=== PATIENT | male | born 1975 | race Caucasian/White ===

== ENCOUNTER → 2021-09-07 13:43 | Outpatient (BNVA) | payer MEDICARE, MEDICAID, BC, SELFPAY | PROVIDERS: PCP Internal Medicine; Visit Provider Nurse Practitioner Family | DX: G40.909 Epilepsy, unspecified, not intractable, without status epilepticus (principal); Q85.1 Tuberous sclerosis | CPT/HCPCS: 99212 ==

== ENCOUNTER → 2022-04-21 11:21 | Outpatient (BNVA) | payer MEDICARE, BC, MEDICAID, SELFPAY | PROVIDERS: PCP Family Medicine; Visit Provider Nurse Practitioner Family | DX: G40.909 Epilepsy, unspecified, not intractable, without status epilepticus (principal); Q85.1 Tuberous sclerosis | CPT/HCPCS: 99212 ==

== ENCOUNTER 2023-04-25 13:11 | Outpatient (AMB) | payer MEDICARE, MEDICAID, BC, SELFPAY ==
--- NOTE | 2023-04-25 13:16 | MHC.OFFVIS ---
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 Pt reports he has outgrown his lesions . Artist Suspect Required: No Allergies cephalexin [From Keflex] Allergy (Intermediate, Verified 04/25/23 13:17) Unknown Penicillins Allergy (Intermediate, Verified 04/25/23 13:17) Unknown Medication List - Last Reconciled 04/25/23 by MARISABEL Garg carbamazepine ER 800 mg (2 x 400 mg) PO BID 90 days fluticasone propionate 50 mcg/actuation 2 sprays intranasal DAILY losartan 25 mg PO DAILY phenytoin sodium extended 200 mg (2 x 100 mg) PO BID 90 days sertraline 100 mg PO DAILY HPI HPI Comments History of Present Illness Details 47-yr-old male presents for f/u visit, accompanied by his father Pt denies any significant interval medical changes. However, he did have a recent fall walking down some stairs while carrying something. He did hit his head, required occipital region stables, which have been removed. Denies nay new headaches, dizziness. 03/24/23: Head, Neck, Thoracic CT w/o: IMPRESSION: No acute abnormality of the head or cervical spine. Pt is wondering what would happen if he stopped his AEDs. Patient denies any interval seizure activities. He is compliant w/ Tegretol and Phenytoin. Patient states his kidney status is stable. Patient reports his mood has been down d/t some stress, but is seeing a therapist at home which he feels is helpful- usually once a week but she has been sick. States he is eating well, taking enough fluids, sleeping well. He is supposed to return to [facility] - not sure what they are waiting for specifically. In the meantime, pt has been home doing day to day activities. 01/18/23 14:20 11/27/22 13:04 WBC 6.4 9.1 RBC 5.41 5.43 Hgb 15.5 15.8 Hct 48.8 47.5 MCV 90.2 87.5 MCH 28.7 29.1 MCHC ?31.8 33.3 Platelet Count 341 360 RDW-SD ?48.5 46.3 MPV ?9.3 01/18/23 14:20 11/27/22 13:04 Sodium 139 140 Potassium 5.0 4.1 Chloride 103 105 Bicarbonate Level 26 ?20 Anion Gap 10 15 Glucose Level ?100 ?101 BUN ?21 16 Creatinine-Blood ?1.3 ?1.3 Estimated GFR Crea tinine *67 *68 Calcium 9.1 9.0 Protein, Total 6.7 -- Albumin 4.5 -- AG Ratio 2.0 -- Alkaline Phosphata se ?157 H -- AST (SGOT) 17 -- ALT (SGPT) 27 -- Bilirubin, Total 0.2 -- Ethanol, Serum or Plasma *NONE DETECTED -- Dilantin Level 4.7 L -- Cocaine Metabolite Screen, Urine *NONE DETECTED -- Opiate Screen, Uri ne *NONE DETECTED -- Carbamazepine Leve l ?*12.0 H ?*10.8 PFSH Medical History HTN (hypertension) Mood disorder Social History Alcohol intake: never Patient Tobacco Use Status: Never used Tobacco Review of Systems Const All systems reviewed & are unremarkable except as noted in HPI and below Physical Exam Vital Signs: Last Vital Signs Pulse 71 04/25/23 13:18 Resp 17 04/25/23 13:18 BP 126/78 04/25/23 13:18 Pulse Ox 94 04/25/23 13:18 Oxygen Delivery Method Room Air 04/25/23 13:18 Const General: cooperative and no acute distress Orientation/consciousness: patient oriented x3 HEENT Head: Yes normocephalic Resp Effort & Inspection: normal respiratory effort and able to speak in complete sentences Neuro General: patient oriented x3, gait normal and CN's II-XI intact bilaterally Cognition (Neuro): normal cognition Motor exam (neuro): 5/5 motor strength present throughout Psych Appearance: grossly normal Mental Status: mental status grossly normal Speech and movement: Normal speech and movement present Affect: normal affect Attitude: cooperative Thought process: Normal thought process present Thought content: Normal thought content present Insight: Good insight present (Psych) Judgement: Good judgement present (Psych) Assessment & Plan Assessment & Plan (1) Epilepsy: Code(s): G40.909 - Epilepsy, unspecified, not intractable, without status epilepticus (2) Tuberous sclerosis: Comment: MR Brain w and w/o: 09/28/16 Impression: Scattered areas of subcortial signal abnormality, most conspicuous on FLAIR sequences, without enhancement, mass effect or restricted diffusion, in keeping with clinical diagnosis of tuberous sclerosis. No subependymal giant cell astrocytoma revealed. No abnormal enhancement, hemorrhage or restricted diffusion. Code(s): Q85.1 - Tuberous sclerosis (3) Elevated alkaline phosphatase level: Code(s): R74.8 - Abnormal levels of other serum enzymes (4) Risk for falls: Code(s): Z91.81 - History of falling (5) Phenytoin level low: Code(s): R78.89 - Finding of other specified substances, not normally found in blood Plan Discussed that pt would likely have breakthrough seizure if he stopped his AED tx. Reviewed labs- Notable for elevated Alk, Phos, low phenttoin level, elevated tegretol level. Will recheck CBC, CMP, tegretol and dilantin levels. Also check serum vit D, phosphorus levels. Order baseline Dexa bone density scan as pt has risk factors for osteoporosis d/t chronic phenytoin use. For now: Continue Phenytoin 100 mg- 2 caps bid. Continue Tegretol XR 400 mg- 2 tabs bid. ? f/u in 12 months or sooner prn. Orders: Orders Carbamazepine Tegretol Today G40.909 - Epilepsy, unspecified, not intractable, without status epilepticus, Q85.1 - Tuberous sclerosis Phenytoin Dilantin Today G40.909 - Epilepsy, unspecified, not intractable, without status epilepticus, Q85.1 - Tuberous sclerosis Phenytoin, Free/Unbound Today G40.909 - Epilepsy, unspecified, not intractable, without status epilepticus, Q85.1 - Tuberous sclerosis Vitamin D 25-OH (D2 and D3) Today R74.8 - Abnormal levels of other serum enzymes, T42.0X5A - Adverse effect of hydantoin derivatives, initial encounter Phosphorus Today R74.8 - Abnormal levels of other serum enzymes, T42.0X5A - Adverse effect of hydantoin derivatives, initial encounter Complete Blood Count Auto Diff Today G40.909 - Epilepsy, unspecified, not intractable, without status epilepticus, Q85.1 - Tuberous sclerosis Comprehensive Met. Panel Today G40.909 - Epilepsy, unspecified, not intractable, without status epilepticus, Q85.1 - Tuberous sclerosis XR DEXA axial skeleton Today G40.909 - Epilepsy, unspecified, not intractable, without status epilepticus, Q85.1 - Tuberous sclerosis, R74.8 - Abnormal levels of other serum enzymes, R78.89 - Finding of other specified substances, not normally found in blood, Z91.81 - History of falling Coding Level of Care Code Est Pt Level 4 (26179) Diagnoses Epilepsy G40.909 Tuberous sclerosis Q85.1 Elevated alkaline phosphatase level R74.8 Risk for falls Z91.81 Phenytoin level low R78.89
[2023-04-25 13:18] VITALS: BP 126/78; PULSE 71; RESP 17; O2SAT 94
== END 2023-04-25 13:58 | disposition home or self-care (01) ==
PROVIDERS: PCP Family Medicine; Visit Provider Nurse Practitioner Family
DX: G40.909 Epilepsy, unspecified, not intractable, without status epilepticus (principal); Q85.1 Tuberous sclerosis; R74.8 Abnormal levels of other serum enzymes; Z91.81 History of falling; R78.89 Finding of other specified substances, not normally found in blood
CPT/HCPCS: 99214

== ENCOUNTER → 2023-04-25 13:11 | Outpatient (BNVA) | payer MEDICARE, MEDICAID, BC, SELFPAY | PROVIDERS: PCP Family Medicine; Visit Provider Nurse Practitioner Family | DX: G40.909 Epilepsy, unspecified, not intractable, without status epilepticus (principal); Q85.1 Tuberous sclerosis; R74.8 Abnormal levels of other serum enzymes; R78.89 Finding of other specified substances, not normally found in blood; Z91.81 History of falling | CPT/HCPCS: 99212 ==

== ENCOUNTER 2023-05-24 13:52 | Outpatient (REF) | payer MEDICARE, BC, MEDICAID, SELFPAY ==
--- NOTE | ~2023-05-24 | MM_ITS ---
EXAMINATION: BONE DENSITOMETRY CLINICAL INDICATION: Epilepsy, unspecified, not intractable, without status epilepticus. COMPARISON: This is the patient's baseline examination. TECHNIQUE: Using a [employer] DXA System (software version: 13.1) manufactured by [employer], dual-energy x-ray absorptiometry was performed of the lumbar spine and left hip. The images are of good technical quality. Based on ISCD (International Society for Clinical Densitometry) standards of reporting, Z-scores instead of T-scores are reported in this male patient younger than age 50. Summary results are attached. FINDINGS: AP SPINE L1-L4: BMD 1.339 g/cm2, T-score 1.0, Z-score 0.4, Z-score within expected range for age. LEFT FEMUR, NECK: BMD 0.786 g/cm2, T-score -2.2, Z-score -2.1, Z-score below expected range for age. LEFT FEMUR, TOTAL: BMD 0.903 g/cm2, T-score -1.4, Z-score -1.5, Z-score within expected range for age. IDENTIFIED RISK FACTORS: None listed. HISTORY OF FRACTURE: None listed. MEDICATIONS: Vitamin D. MM/XR DEXA axial skeleton IMPRESSION: 1. DIAGNOSIS: Based on the lowest Z-score value of -2.1 in the femoral neck, the patient's bone density is below the expected range for age. 2. 10-YEAR FRACTURE RISK PREDICTION, FRAX: Not performed in this patient outside the age range of 50-90 years. 3. Treatment Recommendations: NOF guidelines recommend consideration for treatment in postmenopausal women and men age 50 and older presenting with the following: -A hip or vertebral (clinical or morphometric) fracture. -T-score less than or equal to -2.5 at the femoral neck or spine after appropriate evaluation to exclude secondary causes. -Low bone mass at the hip or spine and a 10-year fracture probability by FRAX of greater than or equal to 3% for hip fracture or greater than or equal to 20% for major osteoporotic fracture based on the [place] adapted WHO algorithm. 4. Other Recommendations: All treatment decisions require clinical judgment and consideration of individual patient factors, including patient preferences, comorbidities, previous drug use, risk factors not captured in the FRAX model (e.g. frailty, falls, vitamin D deficiency, increased bone turnover, interval significant decline in bone density) and possible under or overestimation of fracture risk by FRAX. Additional medical evaluation for secondary cause of low bone mineral density may be appropriate. FUTURE SCAN RECOMMENDATION: People with diagnosed cases of osteoporosis or at high risk for fracture should have regular bone mineral density tests. For patients eligible for Medicare, routine testing is allowed once every 2 years. The testing frequency can be increased to one year for patients who have rapidly progressing disease, those who are receiving or discontinuing medical therapy to restore bone mass, or have additional risk factors.
== END 2023-05-24 13:53 | disposition home or self-care (01) ==
LOC: HO.MAMMO 13:52
PROVIDERS: PCP Family Medicine; Visit Provider Nurse Practitioner Family
DX: Z13.820 Encounter for screening for osteoporosis (principal); M85.852 Other specified disorders of bone density and structure, left thigh; M50.30 Other cervical disc degeneration, unspecified cervical region; M51.34 Other intervertebral disc degeneration, thoracic region
CPT/HCPCS: 77080

== ENCOUNTER 2024-10-17 10:23 | Outpatient (AMB) | payer MEDICARE, BC, MEDICAID, SELFPAY ==
--- NOTE | 2024-10-17 11:08 | A.OFFVIS_ITS ---
Vital Signs 10/17/24 11:12 BP 100/62 Blood Pressure Location Rt brachial Position Sitting Pulse 55 Pulse Source Pulse Oximeter Pulse Oximetry (%) 98 Oxygen Delivery Method Room Air Intake Visit Reasons: Follow up Allergies cephalexin (From Keflex) Allergy (Intermediate, Verified 04/25/23 13:17) Unknown Penicillins Allergy (Intermediate, Verified 04/25/23 13:17) Unknown HPI Comments Details: 48-yr-old male presents for f/u visit for seizure and tuberous sclerosis, accompanied by his father. Patient was last seen by myself in April of 2023. Since last visit, patient had inpatient psychiatric hospital stay. Where his medications were adjusted, including his seizure medication. He has since returned home, living with his parents. He is followed closely by Psychiatry in [place]. He continues to attend [facility]. Patient and his father state that his mood is much improved, since starting Invega injections. Patient denies any interval seizure activity. Denies any abdominal symptoms suggestive of seizure aura. Patient believes he has outgrown his seizures and tuberous sclerosis. Patient never had brain MRI following lab visit to assess status of tuberous sclerosis. [facility] Medical History HTN (hypertension) Mood disorder Social History (Reviewed 04/25/23 @ 13:18 by Sarika Bain [facility]) Alcohol intake: never Patient Tobacco Use Status: Never used Tobacco Physical Exam Vital Signs: Last Vital Signs Pulse 55 10/17/24 11:12 BP 100/62 10/17/24 11:12 Pulse Ox 98 10/17/24 11:12 Oxygen Delivery Method Room Air 10/17/24 11:12 Const General: cooperative and no acute distress Orientation/consciousness: patient oriented x3 HEENT Head: Yes normocephalic Resp Effort & Inspection: normal respiratory effort and able to speak in complete sentences Neuro General: patient oriented x3, gait normal and CN's II-XI intact bilaterally Cognition (Neuro): normal cognition Psych Appearance: grossly normal Speech and movement: Normal speech and movement present Affect: normal affect Assessment & Plan Assessment & Plan (1) Epilepsy: Code(s): G40.909 - Epilepsy, unspecified, not intractable, without status epilepticus Category: Medical (2) Tuberous sclerosis: Comment: MR Brain w and w/o: 09/28/16 Impression: Scattered areas of subcortial signal abnormality, most conspicuous on FLAIR sequences, without enhancement, mass effect or restricted diffusion, in keeping with clinical diagnosis of tuberous sclerosis. No subependymal giant cell astrocytoma revealed. No abnormal enhancement, hemorrhage or restricted diffusion. Code(s): Q85.1 - Tuberous sclerosis Category: Medical Plan Check CBC, CMP, tegretol and dilantin levels. Brain MRI with and without contrast to assess status of tuberous sclerosis- patient requests open MRI at [facility]. Continue Phenytoin 200 mg twice a day Continue new Tegretol regimen- Tegretol XR 200 mg tab, 1 tab t.i.d. and 2 tabs q.h.s. ? f/u in 12 months or sooner prn. Orders: Orders MR head/brain wo/w con Today G40.909 - Epilepsy, unspecified, not intractable, without status epilepticus, Q85.1 - Tuberous sclerosis, R46.89 - Other symptoms and signs involving appearance and behavior Comprehensive Met. Panel Today G40.909 - Epilepsy, unspecified, not intractable, without status epilepticus, Q85.1 - Tuberous sclerosis Phenytoin Dilantin Today G40.909 - Epilepsy, unspecified, not intractable, without status epilepticus, Q85.1 - Tuberous sclerosis Complete Blood Count Auto Diff Today G40.909 - Epilepsy, unspecified, not intractable, without status epilepticus, Q85.1 - Tuberous sclerosis Carbamazepine Tegretol Today G40.909 - Epilepsy, unspecified, not intractable, without status epilepticus, Q85.1 - Tuberous sclerosis Phenytoin, Free/Unbound Today G40.909 - Epilepsy, unspecified, not intractable, without status epilepticus, Q85.1 - Tuberous sclerosis Medications: New phenytoin sodium extended 200 mg PO BID 60 caps 6RF 30 days Refilled carbamazepine 1 tab tid and 2 tabs qhs orally 2 times a day; 150 tabs 6RF 30 days Discontinued phenytoin sodium extended Discontinued Reason: Ancillary Entered New Order 200 mg (2 x 100 mg) PO BID 90 days 360 caps 1RF Coding Level of Care Code Est Pt Level 4 (05350) Diagnoses Epilepsy G40.909 Tuberous sclerosis Q85.1
--- OUTSIDE RECORDS SUMMARY | 2024-10-17 11:10 | XMS_ITS ---
Author Organization [address] Address [address] [place] [address] Phone Care Team Providers Care Pit Worker Power Shovel Name Role Phone Mary Alarcon DO Primary Care Provider [phone] Community Health Worker Program Status:Identified (Enrolling) Start date:10/10/2024 Enrollment reason:Referred from clinic Current support & services provided:Adult Overview Community Health Worker Program Case Team Name Relationship Phone Morteza Mcdermott Community Health Worker(Responsi ble Staff) Continued Care and Services Coordination
[2024-10-17 11:12] VITALS: BP 100/62; PULSE 55; O2SAT 98
== END 2024-10-17 11:39 | disposition home or self-care (01) ==
LOC: HO.HSMS 10:24
PROVIDERS: PCP Family Medicine; Visit Provider Nurse Practitioner Family
DX: G40.909 Epilepsy, unspecified, not intractable, without status epilepticus (principal); Q85.1 Tuberous sclerosis
CPT/HCPCS: 99214

== ENCOUNTER → 2024-10-17 10:23 | Outpatient (BNVA) | payer MEDICARE, BC, SELFPAY | PROVIDERS: PCP Family Medicine; Visit Provider Nurse Practitioner Family | DX: Q85.1 Tuberous sclerosis (principal); G40.909 Epilepsy, unspecified, not intractable, without status epilepticus | CPT/HCPCS: 99212 ==

== ENCOUNTER 2025-03-17 08:44 | Outpatient (REF) | payer BC, MEDICARE, MEDICAID, SELFPAY ==
--- OUTSIDE RECORDS SUMMARY | 2016-12-12 23:00 | XMS_ITS | Encounter Summary ---
Author Organization [facility] Address [address] [facility] [address] [place] [phone] Phone Care Team Providers Care Supervisor Sunglasses Name Role Phone Unavailable Primary Care Provider Unavailabl e Reason for Visit * MRI/CAT Scan - Closed Specialty Diagnoses / Procedures Referred By Leanna rodriguez Referred To Contact Procedures MRI Abdomen Outside (No Interpretation) Maximo Rivas MD [address] [place] [phone] Phone: tel: fax: mailto:[email or web address] Referral ID Status Reason Start Date Expiration Date Visits Re quested Visits Authorized [id number] Closed 09/18/2017 09/18/2018 1 1 Encounter Details Date Type Department Care Team (Late st Contact Info) Description 12/13/2016 Hospital Encounter [facility] General Imaging [address] [place] [phone] Maximo Rivas MD [address] [place] [phone] [email or web address] Social History Tobacco Use Types Packs/Day Years [...] (No Interpretation) (12/13/2016 12:00 AM EDT) Narrative [facility] - 09/18/2017 1:25 PM EDT This study is for PACS storage only and not for interpretation. us Maximo Rivas MD IMG OUTSIDE IMAGING W/OUT INTE RPRETATION Final Result [facility] documented in this encounter Visit Diagnoses Not on filedocumented in this encounter Additional Source Comments The information contained in this document represents components of the legal health record. It is not the complete legal health record.[facility]
--- OUTSIDE RECORDS SUMMARY | 2017-07-12 23:00 | XMS_ITS | Encounter Summary ---
Author Organization [facility] Address [address] [facility] [address] [place] [address] Phone Care Team Providers Care Nfl Player Name Role Phone Unavailable Primary Care Provider Unavailabl e Reason for Visit * MRI/CAT Scan - Closed Specialty Diagnoses / Procedures Referred By Leanna t Referred To Contact Procedures CT Abdomen Outside (No Interpretation) Maximo Rivas MD [address] [place] [phone] Phone: tel: fax: mailto:[email or web address] Referral ID Status Reason Start Date Expiration Date Visits Re quested Visits Authorized [id number] Closed 09/18/2017 09/18/2018 1 1 Encounter Details Date Type Department Care Team (Late st Contact Info) Description 07/13/2017 Hospital Encounter [facility] General Imaging [address] [place] [phone] Maximo Rivas MD [address] [place] [phone] [email or web address] Social [...] (No Interpretation) (07/13/2017 12:00 AM EDT) Narrative [facility] [place] - 09/18/2017 1:21 PM EDT This study is for PACS storage only and not for interpretation. us Maximo Rivas MD IMG OUTSIDE IMAGING W/OUT INTE RPRETATION Final Result [facility] documented in this encounter Visit Diagnoses Not on filedocumented in this encounter Additional Source Comments The information contained in this document represents components of the legal health record. It is not the complete legal health record.[facility]
--- OUTSIDE RECORDS SUMMARY | 2025-03-12 17:29 | XMS_ITS | Continuity of Care Document ---
Author Organization [facility] al Address [address] [place] [address]- Care Team Providers Care Dynamics Ax Technical Architect Name Role Phone Brandin Sheth Primary Care Physician Encounter [facility] Date(s): 03/12/25 - 03/12/[address] [address]- Discharge Disposition: A-D/C Home Attending Physician: Edy Acharya MD Admitting Physician: Edy Acharya MD Referring Physician: Not on Staff, Referring MD Encounter Type: Disch ES Allergies, Adverse Reactions, Alerts Substance Criticality Severity Reaction Reaction Severity Status morphine halucination,AMS Act denny penicillins Active Keflex Active Functional Status Functional Status Assessment Assessment Assessment Component Result Effecti ve Date Total Falls Risk Score 5 03/12 Immunizations Given and Recorded Vaccine Date Status Refusal Reason tetanus/diphtheria/pertussis, acel(Tdap) 03/24/23 Given influenza virus vaccine, inactivated 01/27/16 Dimas rded Medications Clonidine = 0.1 mg, By Mouth, 3 times a day, 0 Refills, Maintenance, 01/22/24 11:34:00 AM EDT, Partial fill upon patient request if the prescription is for a schedule II opioid drug. Start Date: 01/22/24 Status: Ordered Medication Dispense Status: Completed Total Allowed Fills: 1 Fills Dispensed: 0 losartan 25 mg oral tablet 25 mg, 1, tablet, By Mouth, Daily, # 30 tablet, Refills 11, Tot. Refills 11, Maintenance, 10/28/15 8:59:00 AM EDT, Route to Pharmacy Electronically, [address] Start Date: 10/28/15 Status: Ordered Medication Dispense Status: Completed Quantity: 30.0 Unit: tablet Total Allowed Fills: 12 Fills Dispensed: 0 Melatonin = 5 mg, 0 Refills, Maintenance, 01/23/24 2:05:00 PM EDT, Partial fill upon patient request if the prescription is for a schedule II opioid drug. Start Date: 01/23/24 Status: Ordered Medication Dispense Status: Completed Total Allowed Fills: 1 Fills Dispensed: 0 Phenytoin = 100 mg, By Mouth, 2 times a day, 0 Refills, Maintenance, 11/27/22 1:47:00 PM EDT, Partial fill uponpatient request if the prescription is for a schedule II opioid drug. Start Date: 11/27/22 Status: Ordered Medication Dispense Status: Completed Total Allowed Fills: 1 Fills Dispensed: 0 Sertraline = 200 mg, By Mouth, Daily, 0 Refills, Maintenance, 11/27/22 1:47:00 PM EDT, Partial fill upon patientrequest if the prescription is for a schedule II opioid drug. Start Date: 11/27/22 Status: Ordered Medication Dispense Status: Completed Total Allowed Fills: 1 Fills Dispensed: 0 Tegretol XR = 100 mg, By Mouth, 2 times a day, 0 Refills, Maintenance, 01/23/24 2:04:00 PM EDT, Partial fill upon patient request if the prescription is for a schedule II opioid drug. Start Date: 01/23/24 Status: Ordered Medication Dispense Status: Completed Total Allowed Fills: 1 Fills Dispensed: 0 TEGretol XR 400 mg oral tablet, extended release TAKE 2 TABLETS TWICE DAILY, 09/23/12 5:00:00 AM EDT Start Date: 09/23/12 Status: Ordered Medication Dispense Status: Completed Total Allowed Fills: 1 Fills Dispensed: 0 Mental Status Mental Status Assessment Assessment Assessment Component Result Effecti ve Date Theresa coma score total 15 Mental Status Assessment Assessment Assessment Component Result Effecti ve Date [place] coma score total 15 Body weight 101 03/12/25 Dry body weight Measured 101 Scale weight (physic al object) Patient/family stated 03/12/25 Respiratory rate 18 03/12/25 Heart rate 90 03/12/25 Gas delivery source Respiratory system Room air 03/12/25 Oxygen saturation in Arterial blood by Pulse oximetry 98 03/12/25 Body height 162 03/12/25 Systolic blood pressure <content ID='[id number] '>150</content>/<con tent ID='[id number] '>98</content> 03/12/25 Blood pressure measurement site Arm, left 03/12/25 Body temperature 98 03/12/25 Body temperature measurement site Oral 03/12/25 Mental Status Assessment Assessment Assessment Component Result Effecti Theresa coma score total 15 Systolic blood pressure <content ID='[id number] '>145</content>/<con tent ID='[id number] '>90</content> 03/12/25 Blood pressure measurement site Arm, left 03/12/25 Gas delivery source Respiratory system Room air 03/12/25 Body temperature measurement site Oral 03/12/25 Body weight 101 03/12/25 Body temperature 97.9 03/12/25 Body height 162 03/12/25 Respiratory rate 18 03/12/25 Dry body weight Measured 101 Heart rate 85 03/12/25 Scale weight (physic al object) Patient/family stated 03/12/25 Oxygen saturation in Arterial blood by Pulse oximetry 100 03/12/25 Problem List Condition Confirmation Course Effective Dates Status H ealth Status Informant Abdominal wall abrasion Confirmed Active Allergic rhinitis Confirmed Active epilepsy Confirmed Active GERD without esophagitis Confirmed Active Hearing loss Confirmed Active Hyperlipidemia Confirmed Active Hypertension Confirmed Active Mild recurrent major depression Confirmed Active Obesity Confirmed Active Testicular pain Confirmed Active Sensorineural hearing loss Confirmed Active Severe obesity (BMI 35.0-39.9) with comorbidity Confirmed Active Vitamin d deficiency Confirmed Active Results Radiology Reports * Exam Date Time Procedure Performing Provider Status 03/12/25 4:[address] Cervical Spine W/O Contrast Auth (Verified) Notes: (CT Cervical Spine W/O Contrast) Reason For Exam: Trauma RESULT: CT Cervical Spine W/O Contrast CT Head/Brain W/O Contrast, CT Cervical Spine W/O Contrast INDICATION: Reason: Trauma; Clinical Question(s): Hematoma - TECHNIQUE: Noncontrast head CT using axial technique was reconstructed in axial and coronal planes.Noncontrast spiral CT through the cervical spine was formatted in 3 planes. Automatic tube modulation was used for the cervical spine and iterative dose reconstruction was used for both the head and cervical spine to optimize scan parameters and image quality. CTDIvol Body: 12.56 mGy, DLP Body: 268 mGy*cm. CTDIvol Head: 47.67 mGy, DLP Head: 793 mGy*cm. COMPARISON: Most recent 02/19/2025. FINDINGS: Sales Office Administrator View Findings, Lines and Tubes: None. BRAIN AND EXTRA-AXIAL SPACES: No parenchymal hemorrhage, midline shift, or mass effect. Hayden-white matter differentiation is wellpreserved. No acute infarct. Negative insular ribbon and hyperdense vessel signs. There are multiple areas of calcification within bilateral basal ganglia region in the subependymoma region A few scattered cortical calcifications are unchanged. Mild prominence of the ventricles and sulci consistent with parenchymal volume loss. Mild low-density white matter changes. No subarachnoid hemorrhage. No subdural or epidural collection. CALVARIUM, SKULL BASE, AND SOFT TISSUES: No fractures or suspicious bony lesions. The paranasal sinuses and mastoid air cells are clear. Unchanged mild shape deformity of the left globe. Otherwise, visualized orbits and globes are intact. Mild anterior scalp soft tissue deformity of the anterior scalp extending superiorly, correspondingto previously seen laceration injury. Otherwise, extracranial soft tissues are unremarkable. CERVICAL SPINE: No fracture. No acute osseous abnormalities. Normal alignment. No locked or perched facet. Intervertebral disc spaces and vertebral body heightsare preserved. OTHER BONES: No acute abnormality. CERVICAL SOFT TISSUES AND LUNG APICES: Normal soft tissues. Visualized lung apices are clear. Normal thyroid. IMPRESSION: No acute abnormality of the head or cervical spine. 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 I have personally reviewed the images and I agree with this report. WSN: [id number] Ordering Physician: Edy Acharya Dictated By: Mitch Bloom MD Dictated Date/Time: 03/12/25 4:44 pm Reviewed By: Shanti Acevedo MD Signed By: Shanti Acevedo MD Signed Date/Time: 03/12/25 4:49 pm Transcribed By: AMBAR Transcribed Date/Time: 03/12/25 4:33 pm * Exam Date Time Procedure Performing Provider Status 03/12/25 4:[address] Head/Brain W/O Contrast Auth (Verified) Notes: (CT Head/Brain W/O Contrast) Reason For Exam: Trauma RESULT: CT Head/Brain W/O Contrast CT Head/Brain W/O Contrast, CT Cervical Spine W/O Contrast INDICATION: Reason: Trauma; Clinical Question(s): Hematoma - TECHNIQUE: Noncontrast head CT using axial technique was reconstructed in axial and coronal planes.Noncontrast spiral CT through the cervical spine was formatted in 3 planes. Automatic tube modulation was used for the cervical spine and iterative dose reconstruction was used for both the head and cervical spine to optimize scan parameters and image quality. CTDIvol Body: 12.56 mGy, DLP Body: 268 mGy*cm. CTDIvol Head: 47.67 mGy, DLP Head: 793 mGy*cm. COMPARISON: Most recent 02/19/2025. FINDINGS: Sales Office Administrator View Findings, Lines and Tubes: None. BRAIN AND EXTRA-AXIAL SPACES: No parenchymal hemorrhage, midline shift, or mass effect. Hayden-white matter differentiation is wellpreserved. No acute infarct. Negative insular ribbon and hyperdense vessel signs. There are multiple areas of calcification within bilateral basal ganglia region in the subependymoma region A few scattered cortical calcifications are unchanged. Mild prominence of the ventricles and sulci consistent with parenchymal volume loss. Mild low-density white matter changes. No subarachnoid hemorrhage. No subdural or epidural collection. CALVARIUM, SKULL BASE, AND SOFT TISSUES: No fractures or suspicious bony lesions. The paranasal sinuses and mastoid air cells are clear. Unchanged mild shape deformity of the left globe. Otherwise, visualized orbits and globes are intact. Mild anterior scalp soft tissue deformity of the anterior scalp extending superiorly, correspondingto previously seen laceration injury. Otherwise, extracranial soft tissues are unremarkable. CERVICAL SPINE: No fracture. No acute osseous abnormalities. Normal alignment. No locked or perched facet. Intervertebral disc spaces and vertebral body heightsare preserved. OTHER BONES: No acute abnormality. CERVICAL SOFT TISSUES AND LUNG APICES: Normal soft tissues. Visualized lung apices are clear. Normal thyroid. IMPRESSION: No acute abnormality of the head or cervical spine. 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 I have personally reviewed the images and I agree with this report. WSN: [id number] Ordering Physician: Edy Acharya Dictated By: Mitch Bloom MD Dictated Date/Time: 03/12/25 4:44 pm Reviewed By: Shanti Acevedo MD Signed By: Shanti Acevedo MD Signed Date/Time: 03/12/25 4:49 pm Transcribed By: AMBAR Transcribed Date/Time: 03/12/25 4:33 pm Vital Signs Most recent to oldest [Reference Range]: 1 2 3 Height 162 cm (03/12/25 5:22 PM) 162 cm (03/12/25 3:41 PM) Weight 101 kg (03/12/25 5:22 PM) 101 kg (03/12/25 3:41 PM) Oxygen Saturation [94-100 %] 100 % (03/12/25:22 PM) 98 % (03/12/25 3:48 PM) 98 % (03/12/25 3:41 PM) Pulse Rate [55-90 bpm] 85 bpm (03/12/25 5:22 PM) 90 bpm (03/12/25 3:48 PM) 90 bpm (03/12/25 3:41 PM) Blood Pressure [90-138/55-84 mm Hg] 145/90mm Hg *H* (03/12/25 5:22 PM) 150/98mm Hg *H* (03/12/25 3:48 PM) 150/98mm Hg *H* (03/12/25 3:41 PM) Respiratory Rate [16-30 br/min] 18 br/min (03/12/25 5:22 PM) 18 br/min (03/12/25 3:48 PM) 18 br/min (03/12/25 3:41 PM) Temperature [96.8-100.4 DegF] 97.9 DegF (03/12/25 5:22 PM) 98 DegF (03/12/25 3:41 PM) Mode of Delivery (Oxygen) Room air (03/12/25 5:22 PM) Room air (03/12/25 3:48 PM) Room air (03/12/25 3:41 PM) Blood pressure sites Arm, left (03/12/25 5:22 PM) Arm, left (03/12/25 3:48 PM) Arm, left (03/12/25 3:41 PM) Temperature Route Oral (03/12/25 5:22 PM) Oral (03/12/25 3:41 PM) Dry Weight 101 kg (03/12/25 5:22 PM) 101 kg (03/12/25 3:41 PM) Weight Obtained Via Patient/family state d (03/12/25 5:22 PM) Patient/family stated (03/12/25 3:41 PM) Social History Social History Type Response Smoking Status Never smoker entered on: 03/09/15 Sex Sex Representation Male (finding) Status N/A Note * Edy Acharya MD: PERFORM, SIGN, VERIFY Event Display: Patient Education Handout Authored Date: [id number] * Edy Acharya MD: PERFORM Event Display: Patient Education Leaflets Authored Date: [id number] Face Laceration: Stitches or Tape ?? [id number] Face Laceration: Stitches or Tape A??laceration is a cut through the skin. This may require stitches if it is deep. Minor cuts may betreated with surgical tape. Home care ??? Follow all instructions for any prescribed medicines. o Your healthcare provider may prescribe an antibiotic. This is to help prevent infection. Take the medicine every day until it's gone???even if you feel better???or you are told to stop. You should not have any left over. o The [facility] provider may prescribe medicines for pain. Take them as directed. If your provider did not prescribe pain medicine, you may use [id number] pain medicine. If you have chronic liver or kidney disease, or ever had a stomach ulcer or gastrointestinal bleeding, talk with your provider before using these medicines. ??? Follow the healthcare provider???s instructions on how to care for thecut. ??? Wash your hands with soap and clean, running water before and after caring for the cut. This helps prevent infection. ??? If a bandage was applied and it becomes wet or dirty, replace it. Otherwise, leave it in place for the first 24 hours, then change it once a day or as directed. ??? If s titches were used, clean the wound daily: o After removing the bandage, wash the area with soap andwater. Use a clean, wet cotton swab to loosen and remove any blood or crust that forms. o After cleaning, keep the wound clean and dry. Talk with your healthcare provider before putting any antibiotic ointment on the wound. Reapply a fresh bandage. o Remove the bandage to shower as usual after the first 24 hours, but don't soak the area in water (no swimming) until the stitches are removed. ??? If surgical tape was used, keep the area clean and dry. If it becomes wet, blot it dry with a towel. ??? While the stitches or tape are in place, keep the wound out of prolonged direct sunlight. After the stitches or tape are removed, continue to stay out of direct sunlight for the next 6 to 12 months, or use a sunscreen with a high level of protection. Sunburn or sun exposure can increase scarring. ??? Most facial??skin wounds heal without problems. But an infection sometimes occurs despite proper treatment. Watch for the signs of infection listed below. ?? Follow-up care Follow up with your healthcare provider as advised.??Ask your provider how long stitches should remain in place. Be sure to return for removal of the stitches as directed.??This is usually within 5 to 7 days. If surgical tape closures were used, you may remove them yourself when your provider recommends??if they have not fallen off on their own. ?? When to get medical advice Call your healthcare provider right away??if any of these occur: ??? Wound bleeding that's not controlled by direct pressure ??? Signs of infection. These include increasing pain in the wound, increasing wound redness or swelling, or pus or bad odor coming from the wound. ??? Fever of??100.4??F (38??C)??or higher, or as directed by your healthcare provider ??? Chills ??? Stitches coming apart or falling out or surgical tape falling off before 5 days ??? Wound edges reopening ??? Wound color changes ??? Numbness around the wound? Last Reviewed Date: 2022 00:00:00 ?? [id number] [employer]. All rights reserved. This information is not intended as a substitute for professional medical care. Always follow your healthcare professional's instructions. ?? Patient Care team information Care Team Personnel Name: Brandin Sheth Position: Reference Physician Member Role: PCP Address: [address] [place] [address] Telecom: Care Team Related Persons Name: PHIL SANDERS Insurance Providers Guarantor name: [employer]O Health Plan Information #: 1 Payer: MEDICARE B Payer Identifier: ROCCO Member Number: [id number] Group Number: Subscriber Identifier: [id number] Relationship to Subscriber: self Coverage Type: NA Coverage Verification Date: Telecom: NA Address: Health Plan Information #: 2 P[email or web address] [employer] Payer Identifier: Member Number: [id number] Group Number: Subscriber Identifier: [id number] Relationship to Subscriber: self Coverage Type: MEDICAID Coverage Verification Date: Telecom: Address:
--- OUTSIDE RECORDS SUMMARY | 2025-03-14 03:57 | XMS_ITS | Continuity of Care Document ---
Author Organization [facility] al Address [address] [place] [address]- Care Team Providers Care Medical Field Representative Name Role Phone Brandin Sheth Primary Care Physician Encounter [facility] Date(s): 03/13/25 - 03/14/[address] [address]- Discharge Disposition: A-D/C Home Attending Physician: Brandon Lopez DO Admitting Physician: Brandon Lopez DO Referring Physician: Not on Staff, Referring MD Encounter Type: Disch ES Allergies, Adverse Reactions, Alerts Substance Criticality Severity Reaction Reaction Severity Status morphine halucination,AMS Act denny penicillins Active Keflex Active Immunizations Given and Recorded Vaccine Date Status [...] 8:59:00 AM EDT, Route to Pharmacy Electronically, [address] Start Date: 10/28/15 Status: Ordered Medication [...] Total Allowed Fills: 1 Fills Dispensed: 0 Problem List Condition Confirmation Course Effective Dates [...] Confirmed Active Vitamin d deficiency Confirmed Active Vital Signs Most recent to oldest [Reference Range]: 1 2 3 Height 162 cm (03/13/25 7:43 PM) Weight 91 kg (03/13/25 7:43 PM) Oxygen Saturation [94-100 %] 99 % (03/14/25 1:00 AM) 99 % (03/13/25 7:43 PM) Pulse Rate [55-90 bpm] 75 bpm (03/14/25 3:00 AM) 82 bpm (03/14/25 1:00 AM) 79 bpm (03/13/25 7:43 PM) Blood Pressure [90-138/55-84 mm Hg] 161/89mm Hg *H* (03/14/25 1:00 AM) 119/83mm Hg (03/13/25 7:43 PM) Respiratory Rate [16-30 br/min] 20 br/min (03/14/25 3:00 AM) 20 br/min (03/14/25 1:00 AM) 18 br/min (03/13/25 7:43 PM) Temperature [96.8-100.4 DegF] 98.4 DegF (03/14/25 1:00 AM) 99 DegF (03/13/25 7:43 PM) Mode of Delivery (Oxygen) Room air (03/14/25 1:00 AM) Room air (03/13/25 7:43 PM) Temperature Route Oral (03/14/25 1:00 AM) Oral (03/13/25 7:43 PM) Dry Weight 91 kg (03/13/25 7:43 PM) Weight Obtained Via Patient/family state d (03/13/25 7:43 PM) Social History Social History Type Response Smoking Status Never smoker entered on: 03/09/15 Sex Sex Representation Male (finding) Status N/A Patient Care team information Care Team Personnel Name: Brandin Sheth Position: Reference Physician Member Role: PCP Address: [address] [place] [address] Telecom: Care Team Related Persons Name: PHIL SANDERS Insurance Providers Guarantor name: ROCCO Health Plan Information #: 1 Payer: MEDICARE B Payer Identifier: ROCCO Member Number: [id number] Group Number: [id number] Subscriber Identifier: [id number] Relationship to Subscriber: self Coverage Type: ROCCO Coverage Verification Date: ROCCO Telecom: ROCCO Address: [place] Health Plan Information #: 2 Payer: [employer] Payer Identifier: ROCCO Member Number: [id number] Group Number: [id number] Subscriber Identifier: [id number] Relationship to Subscriber: self Coverage Type: MEDICAID Coverage Verification Date: ROCCO Telecom: ROCCO Address: NA
--- OUTSIDE RECORDS SUMMARY | 2025-03-17 09:12 | XMS_ITS | Encounter Summary ---
Author Organization [facility] Address [address] [place] [phone] Phone Care Team Providers Care Nicu Rn Name Role Phone Marshall Brown MD Primary Care Provider [phone] Encounter Details Date Type Department Care Team (Late st Contact Info) Description 09/18/2017 Procedure Pass [facility] [address] [place] [address] Social History Tobacco Use Types Packs/Day Years Used Date Smoking Tobacco: Never Smokeless Tobacco: Never Sex and Gender Information Value Date Recorded Sex Assigned at Not on file Legal Sex Male 9:29 PM EDT Gender Identity Not on file Sexual Orientation Not on file documented as of this encounter Plan of Treatment Not on file documented as of this encounter Visit Diagnoses Not on filedocumented in this encounter Care Teams Nicu Rn Relationship Specialty [place] [address] [place] [id number] PCP - General Internal Medicine 07/30/17 documented as of this encounter Additional Source Comments The information contained in this document represents components of the legal health record. It is not the complete legal health record.[facility]
--- OUTSIDE RECORDS SUMMARY | 2025-03-17 09:12 | XMS_ITS | Encounter Summary ---
Author Organization [facility] Address [address] [place] [address] Phone Care Team Providers Care International Logistics Manager Name Role Phone Marshall Brown MD Primary Care Provider [phone]- [phone] Encounter Details Date Type Department Care Team (Late st Contact Info) Description 12/26/2017 Ancillary Orders [facility] Imaging - RF/IR [address] [facility], 2nd [place] [address] Yessy Freire MD [address] [place] [address] [address] [place] [address] [email or web address] Renal mass Social History Tobacco Use Types Packs/Day Years Used Date Smoking Tobacco: Never Smokeless Tobacco: Never Sex and Gender Information Value Date Recorded Sex Assigned at Not on file Legal Sex Male 9:29 PM EDT Gender Identity Not on file Sexual Orientation Not on file documented as of this encounter Plan of Treatment Not on file documented as of this encounter Results * CT Biopsy Kidney Focal (Right) (01/07/2018 12:00 PM EDT) Anatomical Region Laterality Modality Kidney Computed Tomogra phy 01/07/2018 12:0 9 PM EDT Impressions 01/07/2018 8:[address] GUIDED BIOPSY OF RIGHT RENAL MASS. ATTESTATION: I, Dr. Sharad Sorto as teaching physician, have reviewed the images for this case and if necessary edited the report originally created by Zuleyma Rowell. Narrative 01/07/2018 8:58 PM EDT PROCEDURE: CT-GUIDED RENAL MASS BIOPSY Fellow: Dr. Zuleyma Rowell MD Attending: Dr. Dr. Sharad Sorto was present for the entire procedure. HISTORY: Right upper pole partially exophytic lesion ANESTHESIA: Intravenous conscious sedation was administered by radiology nursing. Continuous hemodynamic and respiratory monitoring was performed, including the use of pulse oximetry. START TIME: 11:00 am STOP TIME: 11:45 am Medications: Fentanyl (mcg) IV 150 Versed (mg) IV 3 PROCEDURE: Informed consent was obtained from the patient. The patient was placed in right lateral decubitus position on the CT table and special forces senior sergeant images were obtained. The right renal mass was localized. After assessing the most direct access to the lesion, the patient's skin was prepped and draped in the usual sterile fashion. 1% Lidocaine local anesthetic was applied to the skin and subcutaneous tissues. Subsequently, a 15 cm coaxial 17 gauge Bard needle was advanced through the retroperitoneal space into the lesion. Fine needle aspirations and 18 gauge core biopsy samples of the mass were obtained. Gelfoam was used to minimize the possibility of bleeding. Postbiopsy images demonstrate a minimal amount of blood products in the surrounding retroperitoneum. The patient tolerated the procedure well and was transported to the recovery area in stable condition. Procedure Note Sharad Sorto MD - 01/07/2018 PROCEDURE: CT-GUIDED RENAL MASS BIOPSY Fellow: Dr. Zuleyma Rowell MD Attending: Dr. Dr. Sharad Sorto was present for the entire procedure. HISTORY: Right upper pole partially exophytic lesion ANESTHESIA: Intravenous conscious sedation was administered by radiology nursing. Continuous hemodynamic and respiratory monitoring wasperformed, including the use of pulse oximetry. START TIME: 11:00 am STOP TIME: 11:45 am Medications: Fentanyl (mcg) IV 150 Versed (mg) IV 3 PROCEDURE: Informed consent was obtained from the patient. The patientwas placed in right lateral decubitus position on the CT table and scoutimages were obtained. The right renal mass was localized. After assessing the mostdirect access to the lesion, the patient's skin was prepped and draped in theusual sterile fashion. 1% Lidocaine local anesthetic was applied to the skinand subcutaneous tissues. Subsequently, a 15 cm coaxial 17 gauge Bard needle was advanced throughthe retroperitoneal space into the lesion. Fine needle aspirations and 18gauge core biopsy samples of the mass were obtained. Gelfoam was used tominimize the possibility of bleeding. Postbiopsy images demonstrate a minimal amount of blood products in the surrounding retroperitoneum. The patient tolerated the procedure well and was transported to therecovery area in stable condition. IMPRESSION: CT GUIDED BIOPSY OF RIGHT RENAL MASS. ATTESTATION: I, Dr. Sharad Sorto as teaching physician, have reviewed theimages for this case and if necessary edited the report originally created byZuleyma Rowell. us T Rafa Freire MD IMG IR ABDOMINAL Final Resul t documented in this encounter Visit Diagnoses Diagnosis Renal mass Unspecified disorder of kidney and ureter Renal mass Unspecified disorder of kidney and ureter documented in this encounter Care Teams International Logistics Manager Relationship Specialty Start Date End Date Marshall Brown MD [address] [place] [address] PCP - General Internal Medicine 07/30/17 documented as of this encounter Additional Source Comments The information contained in this document represents components of the legal health record. It is not the complete legal health record.[facility]
--- OUTSIDE RECORDS SUMMARY | 2025-03-17 09:12 | XMS_ITS | Encounter Summary ---
Author Organization [facility] Address [address] [place] [address] Phone Care Team Providers Care Gi Technician Name Role Phone Marshall Brown MD Primary Care Provider [phone]- [phone] Encounter Details Date Type Department Care Team (Late st Contact Info) Description 09/18/2017 Procedure [facility] - MRI [address], 6th [place] [address] Social History Tobacco Use Types Packs/Day Years Used Date Smoking Tobacco: Never Assessed Sex and Gender Information Value Date Recorded Sex Assigned at Not on file Legal Sex Male 9:29 PM EDT Gender Identity Not on file Sexual Orientation Not on file documented as of this encounter Plan of Treatment Not on file documented as of this encounter Visit Diagnoses Not on filedocumented in this encounter Care Teams Gi Technician Relationship Specialty Start Date End Date Marshall Brown MD [address] [place] [address] PCP - General Internal Medicine 07/30/17 documented as of this encounter Additional Source Comments The information contained in this document represents components of the legal health record. It is not the complete legal health record.[facility]
--- OUTSIDE RECORDS SUMMARY | 2025-03-17 09:12 | XMS_ITS | Encounter Summary ---
Author Organization [facility] [place] [address] Care Team Providers Care Fuel Handler Name Role Phone Kristen Rabago MD Primary Care Provider Encounter Details Date Type Department Care Team ([facility] Contact Info) Description 10/10/2024 Referral Triage [facility] [address] [place] [address] Morteza Mcdermott Social History Tobacco Use Types Packs/Day Years Used Date Smoking Tobacco: Never Smokeless Tobacco: Never Alcohol Use Standard Drinks/Week Comments No 0 (1 standard drink = 0.6 oz pur e alcohol) Housing Instability Answer Date Recorde d Are you worried that in the next 2 months you may not have stable housing? No 10/10/2024 Food Access & Nutrition Answer Date Rec orded Do you have access to a vari ety of food including fruits and vegetables? Yes 10/10/2024 Access to Healthcare Answer Date Record ed Within the last 3 months, ho kun many times did you visit the emergency department for your medical care? 1 10/10/2024 Health Literacy Answer Date Recorded How often do you need to hav e someone help you when you read instructions, pamphlets, or other written material from your doctor or pharmacy? Often 10/10/2024 Caregiver: How often do you need to have someone help you when you read instructions, pamphlets, or other written material from your doctor or pharmacy? Not on file 10/10/2024 Financial Risk Answer Date Recorded How hard is it for you to pa y for the very basics like food, housing, medical care, and air conditioning / heating? Not very hard 10/10/2024 Transportation Answer Date Recorded Has the lack of transportati on kept you from meetings, work, or from getting things needed for daily living? No Has the lack of transportati on kept you from medical appointments or from getting medications? No 10/10/2024 Social Isolation Answer Date Recorded How often do you feel lonely or isolated from those around you? Unable to respond 10/10/2024 Food Risk Answer Date Recorded Within the past 12 months we worried whether our food would run out before we got money to buy more. Never true 10/10/2024 Within the past 12 months th e food we bought just didn't last and we didn't have money to get more. Never true 10/10/2024 Dependent Care Answer Date Recorded Do you need help finding or paying for care for your loved ones. For example, child development associate teacher or elderly care for an older adult? No 10/10/2024 Education Answer Date Recorded Do you think completing more education or training, like finishing a GED, going to college, or learning a trade, would be helpful for you? N/A 10/10/2024 Employment and Income Answer Date Recor ded During the last four weeks, have you been actively looking for work? No 10/10/2024 Living Situation Answer Date Recorded What is your living situation? Unrecognized valu e 10/10/2024 Interpersonal Safety Answer Date Record ed Physical Abuse Unrecognized value 06/23/2024 Verbal Abuse Unrecognized value 06/23/2024 Sex and Gender Information Value Date Recorded Sex Assigned at Not on file Legal Sex Male 3:01 AM EST Gender Identity Not on file Sexual Orientation Not on file documented as of this encounter Plan of Treatment Upcoming Encounters Date Type Department Care Team (Late st Contact Info) Description 03/27/2025 1:30 PM EST Office Visit Internal [facility] - [facility] [address] [facility] [place] [phone] Brandin De Los Santos PA [address] [facility] [address] documented as of this encounter Visit Diagnoses Not on filedocumented in this encounter Care Teams Fuel Handler Relationship Specialty Start Date End Date Kristen Rabago MD [address] [facility] [place] [address] PCP - General Internal Medicine 01/01/25 documented as of this encounter
--- OUTSIDE RECORDS SUMMARY | 2025-03-17 09:12 | XMS_ITS | Clinical Summary ---
Author Organization [facility] Address [address] [place] [address] Phone Care Team Providers Care Child Caregiver Name Role Phone Marshall Brown MD Primary Care Provider +1- [phone] Allergies Active Allergy Reactions Criticality Noted Date Comments Cephalexin 12/26/2017 Penicillins 12/26/2017 Medications benzonatate (TESSALON) 100 MG capsule Take 200 mg by mouth. Active carBAMazepine (TEGRETOL XR) 400 MG 12 hr tablet Take 400 mg by mouth 2 (two) times a day. Active losartan (COZAAR) 25 MG tablet Take 25 mg by mouth daily. Active phenytoin (DILANTIN) 100 MG ER capsule Take by mouth 2 (two) times a day. Active albuterol 90 mcg/actuation inhaler Inhale 2 puffs into the lungs 4 (four) times a day. Active sertraline (ZOLOFT) 100 MG tablet Take 100 mg by mouth daily. Active NAPROXEN ORAL Take by mouth. Active Social History Tobacco Use Types Packs/Day Years [...] on file Sexual Orientation Not on file Last Filed Vital Signs Vital Sign Reading Time Taken Comments Blood Pressure 143/84 01/07/2018 1:45 PM EDT Pulse 73 01/07/2018 2:00 PM EDT Temperature 36.1 C (97 F) 01/07/2018 10:38 AM EDT Respiratory Rate 16 01/07/2018 1:45 PM EDT Oxygen Saturation 99% 01/07/2018 2:00 PM EDT Inhaled Oxygen Concentration - - Weight 111.6 kg (246 lb) 09/18/2017 1:13 PM EDT Height - - Body Mass Index - - Plan of Treatment Health Maintenance Due Date Last Done Comments CARBAMAZEPINE (TEGRETOL) LEVEL 1974 LIPID PANEL 1974 PHENYTOIN (DILANTIN) LEVEL 1974 DEPRESSION SCREENING 1986 HEPATITIS C SCREENING 1992 HIV ONE-TIME SCREENING (18-6 5 YEARS) 1992 SMOKING STATUS SCREENING (On ce After 26 Yrs) 2000 CREATININE LEVEL 01/07/2019 01/07/2018, 10/08/2017 POTASSIUM LEVEL 01/07/2019 01/07/2018 COLOGUARD 11/09/2019 COLONOSCOPY 11/09/2019 COLORECTAL CANCER SCREENING 11/09/2019 FIT TEST 11/09/2019 FOBT 11/09/2019 SIGMOIDOSCOPY 11/09/2019 VIRTUAL COLONOSCOPY 11/09/2019 PNEUMOCOCCAL VACCINES (50+ years) (1 of 1 - PCV) 2024 ZOSTER VACCINES (1 of 2) 2024 INFLUENZA VACCINE (#1) 2024 7, 01/27/2016, 12/17/2014 COVID-19 VACCINE (3 - 2024-2 6 season) 2024 08/10/2020, 07/20/2020 Adult Td,Tdap Booster 11/27/2028 11/27/2018 RSV VACCINE (1 - 1-dose 75+ series) 2049 HEPATITIS A VACCINES Aged Out No long er eligible based on patient's age to complete this topic HIB VACCINES Aged Out No longer eligi ble based on patient's age to complete this topic MENINGOCOCCAL VACCINES (ACWY) Aged Out No longer eligible based on patient's age to complete this topic MENINGOCOCCAL VACCINES (B) Aged Out N o longer eligible based on patient's age to complete this topic Medical Devices Not on file Procedures Procedure Name Priority Date/Time Associated Diagnosis Comments BASIC METABOLIC PANEL (BMP) Routine 01/07/2018 10:31 AM EDT from Last 3 Months or Most Recently Relevant to Health Maintenance Results * Basic metabolic panel (01/07/2018 10:31 AM EDT) SODIUM 141 135 - 145 mmol/L [facility] POTASSIUM 4.6 3.4 - 5.0 mmol/L [facility] CHLORIDE 104 98 - 108 mmol/L [facility] CO2 27 23 - 32 mmol/L [facility] BUN 20 8 - 25 mg/dL [facility] CREATININE 0.86 0.60 - 1.50 mg/dL [facility] GLUCOSE 98 70 - 110 mg/dL [facility] CALCIUM 8.6 8.5 - 10.5 mg/dL [facility] EGFR 106 >59 mL/min/1.7 3m2 [facility] Comment:If patient is black, multiply result by 1.159. Estimated glomerular filtration rate calculated using the CKD-EPI equation. ANION GAP 10 3 - 17 mmol/L [facility] Blood 01/07/2018 10:3 1 AM EDT 01/07/2018 10:41 AM EDT us Zuleyma Rowell MD LAB BLOOD BKR ORDERABLES Fi nal Result [facility] [address] [place] [address] from Last 3 Months or Most Recently Relevant to Health Maintenance Insurance MEDICARE PART A & B [facility] MEDICARE PART A & B [facility] MEDICARE PART A & B [facility] MEDICARE PART A & B [facility] MEDICARE PART A & [place] [address] [address] [address] [employer] [facility] MEDICARE PART A & B [employer] [facility] MEDICARE PART A & B Member Subscriber Plan / Payer (Ef fective 2014-Present) Name:ElizaayannaTerrence Member ID:[id number] Relation to Subscriber:Self Name:Kiko Terrence Subscriber ID:[id number] Payer ID:[id number] Group ID:Not on file Type:Medicare Address: [facility]. [address] [place] [id number] [facility] MEDICARE PART A & B [facility] MEDICARE PART A & B [facility] Care Teams Child Caregiver Relationship Specialty Start Date End Date Marshall Brown MD [facility] [place] [address] PCP - General Internal Medicine 07/30/17 Additional Source Comments The information contained in this document represents components of the legal health record. It is not the complete legal health record.[facility]
--- OUTSIDE RECORDS SUMMARY | 2025-03-17 09:12 | XMS_ITS | Clinical Summary ---
Author Organization [place] [address] [address] [facility]ly [facility], [facility] Building Address [address] [place] [address] Phone Care Team Providers Care Lead Case Manager Name Role Phone Kristen Rabago MD Primary Care Provider [phone] Allergies Active Allergy Reactions Criticality Noted Date Comments Cephalexin Monohydrate Rash 11/21/2005 Cephalexin 05/06/2024 Morphine Hallucinations 06/13/2024 Penicillins Rash 11/21/2005 Medications losartan (COZAAR) 25 mg tablet Take 1 tablet (25 mg total) by mouth 1 (one) time each day. 4 Active Tegretol XR 400 mg 12 hr tablet Take 2 tablets (800 mg total) by mouth. Active Dilantin KapseaL 100 mg ER capsule Take 2 capsules (200 mg total) by mouth. Active Calcium 500 With D 500 mg-10 mcg (400 unit) per tablet Take 1 tablet by mouth 1 (one) time each day. 4 Active carBAMazepine (CARBATROL) 200 mg 12 hr capsule Take 1 capsule (200 mg total) by mouth 3 (three) times a day. Do not crush or chew. Active phenytoin (DILANTIN) 200 mg ER capsule Take 1 capsule (200 mg total) by mouth 2 (two) times a day. Active paliperidone palmitate (INVEGA SUSTENNA) 156 mg/mL syringe Inject 1 mL (156 mg total) into the shoulder, thigh, or buttocks every 30 (thirty) days. Active cloNIDine (CATAPRES) 0.1 mg tablet Take 1 tablet (0.1 mg total) by mouth 3 (three) times a day. Active fluticasone propionate (FLONASE) 50 mcg/actuation nasal spray Administer 2 sprays into each nostril 1 (one) time each day. Shake gently. Before first use, prime pump. After use, clean tip and replace cap. 16 g 5 4 03/21/20 25 Active sertraline (ZOLOFT) 100 mg tablet TAKE 2 TABLETS BY MOUTH DAILY 180 tablet 1 5 Active benztropine (COGENTIN) 1 mg tablet Take 1 tablet (1 mg total) by mouth 2 (two) times a day. Active melatonin 3 mg tablet Take 10 mg by mouth at bedtime. Active diphenhydrAMINE (BENADRYL) 25 mg capsule Take 1 capsule (25 mg total) by mouth at bedtime as needed for itching. Active traZODone (DESYREL) 50 mg tablet Take 2 tablets (100 mg total) by mouth at bedtime. Active naproxen (EC NAPROSYN) 500 mg EC tabletIndicatio ns:Chronic midline thoracic back pain Take 1 tablet (500 mg total) by mouth 1 (one) time each day with breakfast. 30 tablet 2 5 Active carBAMazepine XR (TEGretol XR) 400 mg 12 hr tablet Take 2 tablets (800 mg total) by mouth at bedtime. Do not crush, chew, or split. 5 Active doxycycline (VIBRAMYCIN) 100 mg capsule Take 1 capsule (100 mg total) by mouth 2 (two) times a day for 10 days. Take with at least 8 ounces (large glass) of water, do not lie down for 30 minutes after. Administer 2 hours before or after multivitamins, antacids, or other products containing polyvalent cations (i.e., calcium, iron, magnesium, selenium, zinc). 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, [facility]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) 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/01/2016 Overview (03/12/2024): Urology following; embolization 04/09 Sensorineural hearing loss 02/10/2016 Tinnitus 02/10/2016 Anxiety and depression 06/11/2015 Epilepsy ([facility] V24, [facility] V28) 06/11/2015 Overview (03/12/2024): Dr Schmitt Hypertension 06/11/2015 Encounters Date Type Department Care Team Description 03/03/2025 1:15 PM EST Office Visit Walk-In Clinic - [address] [phone] Neeta Meyer NP Acute non-recurrent maxillary sinusitis (Primary Dx) 01/29/2025 2:30 PM EDT Office Visit Internal Medicine - [address] [phone] Brandin De Los Santos PA Psychophysiological insomnia (Primary Dx); Chronic midline thoracic back pain; Schizophrenia, unspecified type ([facility] V24, [facility] V28); Mild recurrent major depression ([facility] V24); Primary hypertension; Anxiety and depression; Immunization due 01/17/2025 1:45 PM EDT Office Visit Walk[facility]In Clinic - [address] [phone] Dami Perez NP Chronic midline thoracic back pain (Primary Dx) 01/01/2025 9:15 AM EDT Office Visit Internal Medicine - [address] [phone] Dustin Morrison MD Psychophysiological insomnia (Primary Dx) 12/26/2024 1:45 PM EDT Office Visit Walk-In Clinic [facility] [address] [place] [phone] David Perez PA Insomnia, unspecified type (Primary Dx); Other intermodal owner operator truck driver (current) drug therapy from Last 3 Months Immunizations Immunization Administration Dates Next Due Influenza Quadravalent, MDCK , 0.5ml, preservative free (Flucelvax) 6mo and older 02/16/2023 Influenza trivalent, 0.5mL, preservative free (Fluarix; FluLaval; Fluzone) ages 6mo and older (Afluria) 3 years and older 02/26/2017,01/27/2016,12/17/2014 Influenza trivalent, MDCK, 0 .5mL, preservative free (Flucelvax) 6mo and older 01/29/2025 Pfizer SARS-CoV-2 COVID-19, mRNA, LNP-S, preservative free 03/23/2021 Tdap Tetanus diptheria acell ular pertussis (Boostrix; Adacel) 7yo and older 03/24/2023,11/27/2018 Surgical History Surgery Date Site/Laterality Comments OTHER SURGICAL HISTORY 04/01/2018 Right PROCEDURE: ---- OTHER ----; COMMENT: embolization of angiomyolipoma Medical History Medical History Date Comments Anxiety and depression 06/11/2015 DX:Anxiet y and depression Epilepsy (CMS/HCC V24, CMS/HCC V28) 06/11/2015 DX:Epilepsy (HCC); COMMENT: Dr Schmitt Hypertension 06/11/2015 DX:Hypertension Multiple pulmonary nodules 10/31/2016 DX:Mu ltiple pulmonary nodules Obesity 06/11/2015 DX:Obesity Renal cyst 09/01/2016 DX:Renal cyst; C OMMENT: Urology following Sensorineural hearing loss 02/10/2016 DX:Se nsorineural hearing loss Tinnitus 02/10/2016 DX:Tinnitus Tuberous sclerosis (CMS/HCC V24, CMS/HCC V28) 10/13/2016 DX:Tuberous sclerosis (HCC) Post-nasal drip 05/08/2017 DX:Post-nasal dr ip Family History Medical History Relation Name Comments Coronary artery disease Father Diabetes Father Hypertension Father No Known Problems Maternal Grandfather No Known Problems Maternal Grandmother Other: oral CA Mother No Known Problems Paternal Grandmother Breast cancer Neg Hx Colon cancer Neg Hx Lung cancer Neg Hx Prostate cancer Neg Hx Relation Name Status Comments Father Alive Maternal Grandfather Alive Maternal Grandmother Mother Paternal Grandfather Paternal Grandmother Social History Tobacco Use Types Packs/Day Years Used Date Smoking Tobacco: Never Smokeless Tobacco: Never Tobacco Cessation:Counseling Given: Not Answered Alcohol Use Standard Drinks/Week Comments No 0 [...] ed Within the last 3 months, ho w many times did you visit the emergency [...] care for your loved ones. For example, children counselor or elderly care for an older adult? [...] on file Sexual Orientation Not on file Obstetrics History Last Filed Vital Signs Vital Sign Reading Time Taken Comments Blood Pressure 96/63 03/03/2025 1:10 PM EST Pulse 74 03/03/2025 1:10 PM EST Temperature 36.8 C (98.3 F) 03/03/2025 1:10 PM EST Respiratory Rate 16 03/03/2025 1:10 PM EST Oxygen Saturation 98% 03/03/2025 1:10 PM EST Inhaled Oxygen Concentration - - Weight 95.2 kg (209 lb 12.8 oz) 01/29/2025 2:24 PM EDT Height 162.6 cm (5' 4 ) 06/23/2024 9:44 AM EST Body Mass Index 36.01 06/23/2024 9:44 AM EST Plan of Treatment Upcoming Encounters Date Type Department Care Team (Late st Contact Info) Description 03/27/2025 1:30 PM EST Office Visit [facility] [address] [place] [address] Brandin De Los Santos PA [address] [facility] [place] [address] Health Maintenance Due Date Last Done Comments Hepatitis B Vaccines (1 of 3 - 19+ 3-dose series) 1993 HIV Screening 04/01/2022 Hepatitis C Screening 04/01/2022 Medicare Annual Wellness Visit 04/01/2022 Depression Screening 04/23/2024 Pneumococcal Vaccine: 50+ Years (1 of 1 - PCV) 2024 Zoster Vaccines (1 of 2) 2024 COVID-19 Vaccine (4 - 2024- season) 2024 03/23/2021, 08/10/2020, 07/20/2020 Hypertension/CHF/CAD Annual BMP Blood Test 09/19/2025 09/19/2024, 08/23/2023 Social Influencers of Health Screening 10/10/2025 10/10/2024 Cholesterol Screening (Lipid Panel) 09/19/2029 09/19/2024, 02/16/2023 DTaP,Tdap,and Td Vaccines (3 - Td or Tdap) 03/24/2033 03/24/2023, 11/27/2018 Colorectal Cancer Screening: Colonoscopy 06/23/2034 06/23/2024 RSV Immunization Adult Patients (1 - 1-dose 75+ series) 2049 Influenza Vaccine Completed 01/29/2025, , 02/26/2017, Additional history exists HIB Vaccines Aged Out No longer eligi ble based on patient's age to complete this topic HPV Vaccines Aged Out No longer eligi ble based on patient's age to complete this topic Hepatitis A Vaccines Aged Out No long er eligible based on patient's age to complete this topic IPV Vaccines Aged Out No longer eligi ble based on patient's age to complete this topic MMR Vaccines Aged Out No longer eligi ble based on patient's age to complete this topic Meningococcal ACWY Vaccine Aged Out N o longer eligible based on patient's age to complete this topic Meningococcal B Vaccine Aged Out No l onger eligible based on patient's age to complete this topic RSV Immunization Patients Under 20 months Aged Out No longer eligible based on patient's age to complete this topic Varicella Vaccines Aged Out No longer eligible based on patient's age to complete this topic Procedures Procedure Name Priority Date/Time Associated Diagnosis Comments POC RAPID [id number], MOLECULAR Routine 03/03/2025 2:44 PM EST Acute non-recurrent maxillary sinusitis COMPREHENSIVE METABOLIC PANEL Routine 09/19/2024 3:18 PM EDT Health maintenance examination LIPID PANEL WITH REFLEX TO DIRECT LDL Routine 09/19/2024 3:18 PM EDT Health maintenance examination COLONOSCOPY Routine 06/23/2024 10:07 AM EST Colon cancer screening Epilepsy ([facility] V24, [facility] V28) from Last 3 Months or Most Recently Relevant to Health Maintenance Results * Poc Rapid [id number], MOLECULAR (03/03/2025 2:44 PM EST) [facility] COVID-19/SARS- COV-2 Rapid POC Negative Negative Internal Control Pass Yes Yes Swab Nasopharyngeal structure / Unknown 03/03/2025 2:44 PM EST Neeta Meyer NP POINT OF CARE TEST ENTER/EDIT ORDERABLES Edited Result - Final * (ABNORMAL) Lipid panel with reflex to direct LDL (09/19/2024 3:18 PM EDT) [facility] Cholesterol 210(H) 0 - 200 mg/dL LAB CHEMISTRY METHOD 09/19/2024 7:13 PM [facility] Triglycerides 140 0 - 150 mg/dL LAB CHEMISTRY METHOD 09/19/2024 7:13 PM [facility] HDL 53 >=40 mg/dL LAB CHEMISTRY METHOD 09/19/2024 7:13 PM [facility] LDL Calculated 129(H) 0 - 100 mg/dL LAB CHEMISTRY METHOD 09/19/2024 7:13 PM [facility] VLDL Cholesterol Rob 28 mg/dL LAB CHEMISTRY METHOD 09/19/2024 7:13 PM [facility] Non HDL Chol. (LDL+VLDL) 157(H) <145 mg/dL LAB CHEMISTRY METHOD 09/19/2024 7:13 PM [facility] Chol/HDL Ratio 4.0 0.0 - 4.4 LAB CHEMISTRY METHOD 09/19/2024 7:13 PM [facility] Blood Venous blood specimen / Unknown Venipuncture / Unknown 09/19/2024 3:18 PM EDT 09/19/2024 3:18 PM EDT Branidn HUGGINS LAB BLOOD ORDERABLES Fi nal Result [facility] [address] [place] [address], * Comprehensive metabolic panel (09/19/2024 3:18 PM EDT) Sodium 138 133 - 145 mmol/L LAB CHEMISTRY METHOD 09/19/2024 7:13 PM [facility] Potassium 4.7 3.5 - 5.5 mmol/L LAB CHEMISTRY METHOD 09/19/2024 7:13 PM [facility] Chloride 105 96 - 110 mmol/L LAB CHEMISTRY METHOD 09/19/2024 7:13 PM [facility] CO2 29 21 - 32 mmol/L LAB CHEMISTRY METHOD 09/19/2024 7:13 PM [facility] Anion Gap 4 3 - 11 LAB CHEMISTRY METHOD 09/19/2024 7:13 PM [facility] Glucose 77 70 - 100 mg/dL LAB CHEMISTRY METHOD 09/19/2024 7:13 PM [facility] BUN 16 5 - 25 mg/dL LAB CHEMISTRY METHOD 09/19/2024 7:13 PM [facility] Creatinine 1.11 0.70 - 1.30 mg/dL LAB CHEMISTRY METHOD 09/19/2024 7:13 PM [facility] eGFR 81 >=60 mL/min/1. 73m2 LAB CHEMISTRY METHOD 09/19/2024 7:13 PM [facility] Comment:Calculation based on the Chronic Kidney Disease Epidemiology Collaboration (CKD-EPI) equation refit without adjustment for race. BUN/Creatinine Ratio 14.4 LAB CHEMISTRY METHOD 09/19/2024 7:13 PM [facility] Calcium 8.6 8.5 - 10.5 mg/dL LAB CHEMISTRY METHOD 09/19/2024 7:13 PM [facility] AST (SGOT) 11 10 - 42 unit/L LAB CHEMISTRY METHOD 09/19/2024 7:13 PM [facility] ALT (SGPT) 18 10 - 60 unit/L LAB CHEMISTRY METHOD 09/19/2024 7:13 PM [facility] Alkaline Phosphatase 107 42 - 121 unit/L LAB CHEMISTRY METHOD 09/19/2024 7:13 PM [facility] Total Protein 7.1 6.0 - 8.0 g/dL LAB CHEMISTRY METHOD 09/19/2024 7:13 PM [facility] Albumin 3.7 3.2 - 5.0 g/dL LAB CHEMISTRY METHOD 09/19/2024 7:13 PM [facility] Total Bilirubin 0.3 0.0 - 1.4 mg/dL LAB CHEMISTRY METHOD 09/19/2024 7:13 PM [facility] Blood Venous blood specimen / Unknown Venipuncture / Unknown 09/19/2024 3:18 PM EDT 09/19/2024 3:18 PM EDT Brandin HUGGINS LAB BLOOD ORDERABLES Fi nal Result [facility] [address] [place] [address], * COLONOSCOPY Anesthesia - MAC; [facility] ENDOSCOPY (06/23/2024 10:07 AM EST) Anatomical Region Laterality Modality Other 06/23/2024 9:28 AM EST Impressions 06/23/2024 10:08 AM EST - One 5 mm polyp at 30 cm proximal to the anus, removed with a cold snare. Resected and retrieved. - Non-bleeding internal hemorrhoids. - The examination was otherwise normal on direct and retroflexion views. Recommendation: - Discharge patient to home. - Resume previous diet. - Continue present medications. - Await pathology results. - Repeat colonoscopy for surveillance based on pathology results. - Return to GI office PRN. Narrative 06/23/2024 10:08 AM EST [facility] GI Patient Name: Terrence Sanders Procedure Date: 06/23/2024 9:28 AM Date of : 1975 Age: 48 Room: ROOM 14 Gender: Male Note Status: Finalized Attending MD: Jeovanny Villagran MD, Procedure Date No Time: 06/23/2024 Procedure: Colonoscopy Indications: Screening for colorectal malignant neoplasm Providers: Jeovanny Villagran MD Referring MD: Jeovanny Villagran MD Medicines: Monitored Anesthesia Care Complications: No immediate complications. Estimated Blood Loss: Estimated blood loss: none. Procedure: Pre-Anesthesia Assessment: - ASA Grade Assessment: III - A patient with severe systemic disease. - After reviewing the risks and benefits, the patient was deemed in satisfactory condition to undergo the procedure. After I obtained informed consent, the scope was passed under direct vision. Throughout the procedure, the patient's blood pressure, pulse, and oxygen saturations were monitored continuously.The Colonoscope was introduced through the anus and advanced to the cecum, identified by appendiceal orifice and ileocecal valve. The colonoscopy was performed without difficulty. The patient tolerated the procedure well. The quality of the bowel preparation was good. Findings: A 5 mm polyp was found at 30 cm proximal to the anus. The polyp was sessile. The polyp was removed with a cold snare. Resection and retrieval were complete. Estimated blood loss was minimal. Non-bleeding internal hemorrhoids were found during retroflexion. The hemorrhoids were small. The exam was otherwise without abnormality on direct and retroflexion views. Procedure Code(s): --- Professional --- 62872, Colonoscopy, flexible; with removal of tumor(s), polyp(s), or other lesion(s) by snare technique Diagnosis Code(s): --- Professional --- Z12.11, Encounter for screening for malignant neoplasm of colon D12.6, Benign neoplasm of colon, unspecified CPT copyright 2020 [employer]. All rights reserved. The codes documented in this report are preliminary and upon pelt dropper review may be revised to meet current compliance requirements. Jevoanny Villagran MD 06/23/2024 10:08:43 AM This report has been signed electronically.Jeovanny Villagran MD Number of Addenda: 0 Note Initiated On: 06/23/2024 9:28 AM Scope In: Scope Out: Endoscopy Department at [facility] - [address] [place] [phone] Procedure Note Jeovanny Villagran MD - 06/23/2024 [facility] GI Patient Name: Terrence Sanders Procedure Date: 06/23/2024 9:28 AM Date of : 1975 Age: 48 Room: ROOM 14 Gender: Male Note Status: Finalized Attending MD: Jeovanny Villagran MD, Procedure Date No Time: 06/23/2024 Procedure: Colonoscopy Indications: Screening for colorectal malignant neoplasm Providers: Jeovanny Villagran MD Referring MD: Jeovanny Villagran MD Medicines: Monitored Anesthesia Care Complications: No immediate complications. Estimated Blood Loss: Estimated blood loss: none. Procedure: Pre-Anesthesia Assessment: - ASA Grade Assessment: III - A patient with severe systemic disease. - After reviewing the risks and benefits, thepatient was deemed in satisfactory condition to undergo the procedure. After I obtained informed consent, the scope was passed under direct vision. Throughout theprocedure, the patient's blood pressure, pulse, and oxygen saturations were monitored continuously.The Colonoscope was introduced through the anus and advanced to the cecum, identified by appendiceal orifice and ileocecal valve. The colonoscopy was performed without difficulty. The patient tolerated the procedure well. The quality of the bowel preparation was good. Findings: A 5 mm polyp was found at 30 cm proximal to theanus. The polyp was sessile. The polyp was removed with a cold snare. Resection and retrieval were complete. Estimated blood loss was minimal. Non-bleeding internal hemorrhoids were found during retroflexion. The hemorrhoids were small. The exam was otherwise without abnormality ondirect and retroflexion views. Procedure Code(s): --- Professional --- 48432, Colonoscopy, flexible; with removal of tumor(s), polyp(s), or other lesion(s) by snare technique Diagnosis Code(s): --- Professional --- Z12.11, Encounter for screening for malignantneoplasm of colon D12.6, Benign neoplasm of colon, unspecified CPT copyright 2020 [employer]. All rights reserved. The codes documented in this report are preliminary and upon pelt dropper reviewmay be revised to meet current compliance requirements. Jeovanny Villagran MD 06/23/2024 10:08:43 AM This report has been signed electronically.Jeovanny Villagran MD Number of Addenda: 0 Note Initiated On: 06/23/2024 9:28 AM Scope In: Scope Out: Endoscopy Department at [facility] - [address] [place] [phone] IMPRESSION: - One 5 mm polyp at 30 cm proximal to the anus, removed with a cold snare. Resected andretrieved. - Non-bleeding internal hemorrhoids. - The examination was otherwise normal on directand retroflexion views. Recommendation: - Discharge patient to home. - Resume previous diet. - Continue present medications. - Await pathology results. - Repeat colonoscopy for surveillance based on pathology results. - Return to GI office PRN. Jeovanny Villagran MD GI~PROCEDURE ORDERABLES Final Result from Last 3 Months or Most Recently Relevant to Health Maintenance Insurance MEDICARE [facility] MEDICAID - [place] Care Teams Lead Case Manager Relationship Specialty Start Date End Date Kristen Rabago MD [address] [place], [place] [address] [phone] PCP - General Internal Medicine 01/01/25
--- OUTSIDE RECORDS SUMMARY | 2025-03-17 09:12 | XMS_ITS | Encounter Summary ---
Author Organization [facility] Address [address] [place] [phone] Phone Care Team Providers Care Wash House Worker Name Role Phone Marshall Brown MD Primary Care Provider [phone] Encounter Details Date Type Department Care Team (Late st Contact Info) Description 09/18/2017 Procedure Pass [facility] [address] [place] [address] Social History Tobacco Use Types Packs/Day Years [...] on filedocumented in this encounter Care Teams Wash House Worker Relationship Specialty [place] [address] [place] [id number] PCP - General Internal Medicine 07/30/17 documented as of this encounter Additional Source Comments The information contained in this document represents components of the legal health record. It is not the complete legal health record.[facility]
--- OUTSIDE RECORDS SUMMARY | 2025-03-17 09:12 | XMS_ITS ---
Author Name [facility] Organization Unknown Care Team Organization Name Specialty Phone Email Start Date End Da mateo [facility] 12/10/2024 [facility] Joaquin Unger Primary Care 04/04/20232023 [facility] Elena, PROVIDER Primary Care 02/28/202211/21
[2025-03-17 13:33] LABS: MANUAL DIFF FLAG NO
[2025-03-17 13:40] LABS: Hematocrit 41.7 % (42.0-52.0); Hemoglobin 13.3 g/dl (14.0-18.0); Imm Gran Abs Auto 0.02 X10*3/uL (0.00-0.03); Imm Gran Pct Auto 0.3 % (0.0-0.4); Lymphocytes Absolute Auto 0.7 X10*3/uL (1.2-4.9); Mean Corpuscular HGB Conc 31.9 g/dl (31.0-36.0); Mean Corpuscular Hemoglobin 29.9 pg (27.0-33.0); Mean Corpuscular Volume 93.7 fL (80.0-98.0); NRBC Abs Auto 0.000 X10*3/uL (0.0-0.012); NRBC Pct Auto 0.0 /100WBC (0.0-0.2); Platelet Count 263 X10*3/uL (160-400); Red Blood Count 4.45 X10*6/uL (4.60-5.80); White Blood Count 7.2 X10*3/uL (4.8-10.8)
[2025-03-17 15:01] LABS: Carbamazepine Tegretol 5.4 mcg/mL (5.0-12.0)
[2025-03-17 19:17] LABS: Alanine Aminotransferase 8 U/L (0-40); Albumin Level 3.8 g/dL (3.5-5.0); Alkaline Phosphatase 72 U/L (39-117); Anion Gap 14 (12-20); Aspartate Amino Transferase 21 U/L (5-37); Blood Urea Nitrogen 26 mg/dL (9-16); Calcium 8.3 mg/dL (8.4-10.2); Carbon Dioxide 25 mmol/L (22-29); Chloride 105 mmol/L (96-108); Estimated Glomerular Filt Rate > 60; Potassium 4.2 mmol/L (3.3-5.1); Sodium 140 mmol/L (135-145); Total Protein 6.3 g/dL (6.5-8.0)
[2025-03-18 09:29] LABS: Phenytoin, Free/Unbound 2.6 mg/L (1.0-2.0)
== END 2025-03-17 08:45 | disposition home or self-care (01) ==
LOC: HO.HKASLDS 08:44
PROVIDERS: PCP Physician Assistant; Visit Provider Nurse Practitioner Family
DX: Q85.1 Tuberous sclerosis (principal); G40.909 Epilepsy, unspecified, not intractable, without status epilepticus; Z51.81 Encounter for therapeutic drug level monitoring
CPT/HCPCS: 36415; 80053; 80156; 80185; 80186; 85025

== ENCOUNTER 2025-03-20 09:28 | Outpatient (REF) | payer BC, MEDICARE, MEDICAID, SELFPAY ==
--- OUTSIDE RECORDS SUMMARY | 2016-12-12 23:00 | XMS_ITS | Encounter Summary ---
Author Organization [facility] Address [address] [facility] [address] [place] [phone] Phone Care Team Providers Care Folding Machine Operator Name Role Phone Unavailable Primary Care Provider Unavailabl e Reason for Visit * MRI/CAT Scan - Closed Specialty Diagnoses / Procedures Referred By Leanna rodriguez Referred To Contact Procedures MRI Abdomen Outside (No Interpretation) Maximo Rivas MD [address] [place] [phone] Phone: tel: fax: mailto:[email or web address] Referral ID Status Reason Start Date Expiration Date Visits Re quested Visits Authorized [id number] Closed 09/18/2017 09/18/2018 1 1 Encounter Details Date Type Department Care Team (Late st Contact Info) Description 12/13/2016 Hospital Encounter [facility] General Imaging [address] [place] [address] Maximo Rivas MD [address] [place] [phone] [email or web address] Social History Tobacco Use Types Packs/Day Years Used Date Smoking Tobacco: Never Smokeless Tobacco: Never Education Answer Date Recorded Are you interested in more education? Not on lory e 08/18/2022 Are you concerned about learning? Not on file 08/18/2022 No 08/18/2022 No 08/18/2022 Digital Access Answer Date Recorded No 09/15/2022 No 09/15/2022 No 09/15/2022 Reliable internet access at home? Not on file 09/15/2022 Device with a working camera? Not on file Sex and Gender Information Value Date Recorded Sex Assigned at Not on file Legal Sex Male 9:29 PM EDT Gender Identity Not on file Sexual Orientation Not on file documented as of this encounter Plan of Treatment Not on file documented as of this encounter Procedures Procedure Name Priority Date/Time Associated Diagnosis Comments MRI ABDOMEN OUTSIDE (NO INTERPRETATION) Routine 12/13/2016 12:00 AM EDT documented in this encounter Results * MRI Abdomen Outside (No Interpretation) (12/13/2016 12:00 AM EDT) Narrative [facility] - 09/18/2017 1:25 PM EDT This study is for PACS storage only and not for interpretation. us Maximo Rivas MD IMG OUTSIDE IMAGING W/OUT INTE RPRETATION Final Result [facility] documented in this encounter Visit Diagnoses Not on filedocumented in this encounter Additional Source Comments The information contained in this document represents components of the legal health record. It is not the complete legal health record.[facility]
--- OUTSIDE RECORDS SUMMARY | 2017-07-12 23:00 | XMS_ITS | Encounter Summary ---
Author Organization [facility] Address [address] [facility] [address] [place] [address] Phone Care Team Providers Care Incinerator Attendant Name Role Phone Unavailable Primary Care Provider Unavailabl e Reason for Visit * MRI/CAT Scan - Closed Specialty Diagnoses / Procedures Referred By Leanna t Referred To Contact Procedures CT Abdomen Outside (No Interpretation) Maximo Rivas MD [address] [place] [phone] Phone: tel: fax: mailto:[email or web address] Referral ID Status Reason Start Date Expiration Date Visits Re quested Visits Authorized [id number] Closed 09/18/2017 09/18/2018 1 1 Encounter Details Date Type Department Care Team (Late st Contact Info) Description 07/13/2017 Hospital Encounter [facility] General Imaging [address] [place] [phone] Maximo Rivas MD [address] [place] [phone] [email or web address] Social History Tobacco Use Types Packs/Day Years [...] Procedure Name Priority Date/Time Associated Diagnosis Comments CT ABDOMEN OUTSIDE (NO INTERPRETATION) Routine 07/13/2017 12:00 AM EDT documented in this encounter Results * CT Abdomen Outside (No Interpretation) (07/13/2017 12:00 AM EDT) Narrative [facility] INTER[facility]ACES - 09/18/2017 1:21 PM EDT This study is for PACS storage only and not for interpretation. us Maximo Rivas MD IMG OUTSIDE IMAGING W/OUT INTE RPRETATION Final Result [facility] INTERFACES documented in this encounter Visit Diagnoses Not on filedocumented in this encounter Additional Source Comments The information contained in this document represents components of the legal health record. It is not the complete legal health record.[facility]
--- OUTSIDE RECORDS SUMMARY | 2025-03-20 09:30 | XMS_ITS | Encounter Summary ---
Author Organization [facility] Address [address] [place] [phone] Phone Care Team Providers Care Field Observer Name Role Phone Marshall Brown MD Primary Care Provider [phone] Encounter Details Date Type Department Care Team (Late st Contact Info) Description 09/18/2017 Procedure Pass [facility] [address] [place] [address] Social History Tobacco Use Types Packs/Day Years [...] on filedocumented in this encounter Care Teams Field Observer Relationship Specialty [place] [address] [place] [id number] PCP - General Internal Medicine 07/30/17 documented as of this encounter Additional Source Comments The information contained in this document represents components of the legal health record. It is not the complete legal health record.[facility]
--- OUTSIDE RECORDS SUMMARY | 2025-03-20 09:31 | XMS_ITS | Clinical Summary ---
Author Organization [address] Building Address [address] [place] [address] Phone Care Team Providers Care Soil Conservation Aide Name Role Phone Kristen Rabago MD Primary Care Provider [phone] Allergies Active Allergy Reactions Criticality Noted Date [...] Noted Date Diagnosed Date Schizophrenia, unspecified type (CMS/[facility] V24, CM S/[facility] V28) 01/29/2025 Mild recurrent major depression ([facility] V24) Hyperlipidemia 07/30/2022 Nocturnal hypoxia 12/07/2020 Overview (03/12/2024): Declines oxygen Multiple pulmonary nodules 10/31/2016 Overview (03/12/2024): Dr Ma; no f/u on nodules needed 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, [facility] V28) 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/01/2016 Overview (03/12/2024): Urology following; embolization 04/09 Sensorineural hearing loss 02/10/2016 Tinnitus 02/10/2016 Anxiety and depression 06/11/2015 Epilepsy ([facility] V24, [facility] V28) 06/11/2015 Overview (03/12/2024): Dr Schmitt Hypertension 06/11/2015 Encounters Date Type Department Care Team Description 03/17/2025 Telephone Internal Medicine - [address] [phone] Kristen Rabago MD 03/03/2025 1:15 PM EST Office Visit Walk[facility]In Clinic - [address] [phone] Neeta Meyer NP Acute non-recurrent maxillary sinusitis (Primary Dx) 01/29/2025 2:30 PM EDT Office Visit Internal Medicine - [address] [phone] Brandin De Los Santos PA Psychophysiological insomnia (Primary Dx); Chronic midline thoracic back pain; Schizophrenia, unspecified type ([facility] V24, [facility] V28); Mild recurrent major depression ([facility] V24); Primary hypertension; Anxiety and depression; Immunization due 01/17/2025 1:45 PM EDT Office Visit [facility] - [address] [phone] Dami Perez NP Chronic midline thoracic back pain (Primary Dx) 01/01/2025 9:15 AM EDT Office Visit Internal Medicine [address] [phone] Dustin Morrison MD Psychophysiological insomnia (Primary Dx) 12/26/2024 1:45 PM EDT Office Visit [facility] - [address] [phone] David Perez PA Insomnia, unspecified type (Primary Dx); Other technician terminal and repeater (current) drug therapy from Last 3 Months [...] depression 06/11/2015 DX:Anxiet y and depression Epilepsy ([facility] V24, [facility] V28) 06/11/2015 DX:Epilepsy (HCC); COMMENT: Dr Schmitt Hypertension 06/11/2015 DX:Hypertension Multiple pulmonary nodules 10/31/2016 DX:Mu ltiple pulmonary nodules Obesity 06/11/2015 DX:Obesity Renal cyst 09/01/2016 DX:Renal cyst; C OMMENT: Urology following Sensorineural hearing loss 02/10/2016 DX:Se nsorineural hearing loss Tinnitus 02/10/2016 DX:Tinnitus Tuberous sclerosis (CMS/[facility] V24, [facility] V28) 10/13/2016 DX:Tuberous sclerosis (HCC) Post-nasal drip [...] care for your loved ones. For example, children's librarian or elderly care for an older adult? [...] Office Visit [facility] - [facility] [address] [facility] Xie MD [phone] Brandin De Los Santos PA [address] [facility] [place] [address] Health Maintenance Due Date Last Done Comments [...] Priority Date/Time Associated Diagnosis Comments POC RAPID [id number], MOLECULAR Routine 03/03/2025 2:44 PM EST Acute non-recurrent maxillary sinusitis COMPREHENSIVE METABOLIC PANEL Routine 09/19/2024 3:18 PM EDT Health maintenance examination LIPID PANEL WITH REFLEX TO DIRECT LDL Routine 09/19/2024 3:18 PM EDT Health maintenance examination COLONOSCOPY Routine 06/23/2024 10:07 AM EST Colon cancer screening Epilepsy ([facility] V24, [facility] V28) from Last 3 Months or Most Recently Relevant to Health Maintenance Results * Poc Rapid [id number], MOLECULAR (03/03/2025 2:44 PM EST) [facility] COVID-19/SARS- COV-2 Rapid POC Negative Negative Internal Control Pass Yes Yes Swab Nasopharyngeal structure / Unknown 03/03/2025 2:44 PM EST Neeta Meyer NP POINT OF CARE TEST ENTER/EDIT ORDERABLES Edited Result - Final * (ABNORMAL) Lipid panel with reflex to direct LDL (09/19/2024 3:18 PM EDT) [facility] Cholesterol 210(H) 0 - 200 mg/dL LAB CHEMISTRY METHOD 09/19/2024 7:13 PM EDT [facility] Triglycerides 140 0 - 150 mg/dL LAB CHEMISTRY METHOD 09/19/2024 7:13 PM [facility] HDL 53 >=40 mg/dL LAB CHE[facility]STRY METHOD [facility] LDL Calculated 129(H) 0 - 100 mg/dL LAB CHEMISTRY METHOD 09/19/2024 7:13 PM [facility] VLDL Cholesterol Rob 28 mg/dL LAB CHEMISTRY METHOD 09/19/2024 7:13 PM [facility] Non HDL Chol. (LDL+VLDL) 157(H) <145 mg/dL LAB CHEMISTRY METHOD 09/19/2024 7:13 PM EDT [facility] Chol/HDL Ratio 4.0 0.0 - 4.4 LAB CHEMISTRY METHOD 09/19/2024 7:13 PM [facility] Blood Venous blood specimen / Unknown Venipuncture / Unknown 09/19/2024 3:18 PM EDT 09/19/2024 3:18 PM EDT us Brandin HUGGINS LAB BLOOD ORDERABLES Fi nal Result [facility] [address] [place] [address], [place] [phone] * Comprehensive metabolic panel (09/19/2024 3:18 PM EDT) Sodium 138 133 - 145 mmol/L LAB CHEMISTRY METHOD 09/19/2024 7:13 PM [facility] Potassium 4.7 3.5 - 5.5 mmol/L LAB CHEMISTRY METHOD 09/19/2024 7:13 PM [facility] Chloride 105 96 - 110 mmol/L LAB CHEMISTRY METHOD 09/19/2024 7:13 PM [facility] CO2 29 21 - 32 mmol/L LAB CHEMISTRY METHOD 09/19/2024 7:13 PM [facility] Anion Gap 4 3 - 11 LAB CHEMISTRY METHOD 09/19/2024 7:13 PM [facility] Glucose 77 70 - 100 mg/dL LAB CHEMISTRY METHOD 09/19/2024 7:13 PM [facility] BUN 16 5 - 25 mg/dL LAB CHEMISTRY METHOD 09/19/2024 7:13 PM [facility] Creatinine 1.11 0.70 - 1.30 mg/dL LAB CHEMISTRY METHOD 09/19/2024 7:13 PM [facility] eGFR 81 >=60 mL/min/1. 73m2 LAB CHEMISTRY METHOD 09/19/2024 7:13 PM [facility] Comment:Calculation based on the Chronic Kidney Disease Epidemiology Collaboration (CKD-EPI) equation refit without adjustment for race. BUN/Creatinine Ratio 14.4 LAB CHEMISTRY METHOD 09/19/2024 7:13 PM T [facility] Calcium 8.6 8.5 - 10.5 mg/dL LAB CHEMISTRY METHOD 09/19/2024 7:13 PM [facility] AST (SGOT) 11 10 - 42 unit/L LAB CHEMISTRY METHOD 09/19/2024 7:13 PM [facility] ALT (SGPT) 18 10 - 60 unit/L LAB CHEMISTRY METHOD 09/19/2024 7:13 PM [facility] Alkaline Phosphatase 107 42 - 121 unit/L LAB CHEMISTRY METHOD 09/19/2024 7:13 PM [facility] Total Protein 7.1 6.0 - 8.0 g/dL LAB CHEMISTRY METHOD 09/19/2024 7:13 PM [facility] Albumin 3.7 3.2 - 5.0 g/dL LAB CHEMISTRY METHOD 09/19/2024 7:13 PM [facility] Total Bilirubin 0.3 0.0 - 1.4 mg/dL LAB CHEMISTRY METHOD 09/19/2024 7:13 PM [facility] Blood Venous blood specimen / Unknown Venipuncture / Unknown 09/19/2024 3:18 PM EDT 09/19/2024 3:18 PM EDT us Brandin HUGGINS LAB BLOOD ORDERABLES Fi nal Result [facility] [address] [place] [address], * COLONOSCOPY Anesthesia - MAC; [facility] ENDOSCOPY (06/23/2024 10:07 AM EST) Anatomical Region [...] office PRN. Narrative 06/23/2024 10:08 AM EST [facility] GI Patient Name: Terrence Sanders Procedure [...] retroflexion views. Procedure Code(s): --- Professional --- 96816, Colonoscopy, flexible; with removal of tumor(s), polyp(s), or other lesion(s) by snare technique Diagnosis Code(s): --- Professional --- Z12.11, Encounter for screening for malignant neoplasm of colon D12.6, Benign neoplasm of colon, unspecified CPT copyright 2020 [employer]. All rights reserved. The codes documented in this report are preliminary and upon supply officer review may be revised to meet current compliance requirements. Jeovanny Villagran MD 06/23/2024 10:08:43 AM This report has been signed electronically.Jeovanny Villagran MD Number of Addenda: 0 Note Initiated On: 06/23/2024 9:28 AM Scope In: Scope Out: Endoscopy Department at [facility] - [address] [place] [id number] Procedure Note Jeovanny Villagran MD - 06/23/2024 [facility] Patient Name: Terrence Sanders Procedure [...] retroflexion views. Procedure Code(s): --- Professional --- 73335, Colonoscopy, flexible; with removal of tumor(s), polyp(s), or other lesion(s) by snare technique Diagnosis Code(s): --- Professional --- Z12.11, Encounter for screening for malignantneoplasm of colon D12.6, Benign neoplasm of colon, unspecified CPT copyright 2020 [employer]. All rights reserved. The codes documented in this report are preliminary and upon supply officer reviewmay be revised to meet current compliance requirements. Jeovanny Villagran MD 06/23/2024 10:08:43 AM This report has been signed electronically.Jeovanny Villagran MD Number of Addenda: 0 Note Initiated On: 06/23/2024 9:28 AM Scope In: Scope Out: Endoscopy Department at [facility] - [address] [place] [phone] IMPRESSION: - One 5 mm polyp at [...] Most Recently Relevant to Health [place] [address] MEDICARE [facility] MEDICAID - [place] Care Teams Soil Conservation Aide Relationship Specialty Start Date End Date Kristen Rabago MD [address] [facility] PCP - General Internal Medicine 01/01/25
--- OUTSIDE RECORDS SUMMARY | 2025-03-20 09:31 | XMS_ITS | Encounter Summary ---
Author Organization [facility] [place] [address] Care Team Providers Care Sales And Training Specialist Name Role Phone Kristen Rabago MD Primary Care Provider [phone] Encounter Details Date Type Department Care Team ([facility] st Contact Info) Description 10/10/2024 Referral Triage [facility] [address] [place] [address] Morteza Mcdermott Social History Tobacco [...] care for your loved ones. For example, early childhood lead teacher or elderly care for an older [...] Office Visit Internal Medicine - [facility] [address] [place], [place] [phone] Brandin De Los Santos PA [address] [place], [place] documented as of this encounter Visit Diagnoses Not on filedocumented in this encounter Care Teams Sales And Training Specialist Relationship Specialty Start Date End Date Kristen Rabago MD [address] [place], [place] [address]walter WHE[place]LANDDAVID PCP - General Internal Medicine 01/01/25 documented as of this encounter
--- OUTSIDE RECORDS SUMMARY | 2025-03-20 09:31 | XMS_ITS | Encounter Summary ---
Author Organization [facility] Address [address] [place] [address] Phone Care Team Providers Care Analog Ic Design Architect Name Role Phone Marshall Brown MD Primary Care Provider [phone] Encounter Details Date Type Department Care Team (Late st Contact Info) Description 09/18/2017 Procedure Pass [facility] [address] [place] [address] Social History Tobacco Use Types Packs/Day Years [...] on filedocumented in this encounter Care Teams Analog Ic Design Architect Relationship Specialty [place] [address] [place] [address] PCP - General Internal Medicine 07/30/17 documented as of this encounter Additional Source Comments The information contained in this document represents components of the legal health record. It is not the complete legal health record.[facility]
--- OUTSIDE RECORDS SUMMARY | 2025-03-20 09:31 | XMS_ITS | Clinical Summary ---
Author Organization [facility] Address [address] [place] [address] Phone Care Team Providers Care Scene Shifter Name Role Phone Marshall Brown MD Primary Care Provider [phone] Allergies Active Allergy Reactions Criticality Noted Date [...] EDT) SODIUM 141 135 - 145 mmol/L [facility] POTASSIUM 4.6 3.4 - 5.0 mmol/L [facility] CHLORIDE 104 98 - 108 mmol/L [facility] CO2 27 23 - 32 mmol/L [facility] BUN 20 8 - 25 mg/dL [facility] CREATININE 0.86 0.60 - 1.50 mg/dL [facility] GLUCOSE 98 70 - 110 mg/dL [facility] CALCIUM 8.6 8.5 - 10.5 mg/dL [facility] EGFR 106 >59 mL/min/1.7 3m2 [facility] Comment:If patient is black, multiply result by 1.159. Estimated glomerular filtration rate calculated using the CKD-EPI equation. ANION GAP 10 3 - 17 mmol/L [facility] Blood 01/07/2018 10:3 1 AM EDT 01/07/2018 10:41 AM EDT us Zuleyma Rowell MD LAB BLOOD BKR ORDERABLES Fi nal Result [facility] [address] [place] [address] from Last 3 Months or Most Recently Relevant to Health Maintenance Insurance MEDICARE PART A & B [facility] MEDICARE PART A & B [facility] MEDICARE PART A & B [facility] MEDICARE PART A & B [facility] MEDICARE PART A & [place] [address] [address] [place] [address] [email or web address] [facility] MEDICARE PART A & B [employer] [facility] MEDICARE PART A & B [facility] MEDICARE PART A & B [facility] MEDICARE PART A & B [facility] Care Teams Scene Shifter Relationship Specialty Start Date End Date Marshall Brown MD [facility] [place] [address] PCP - General Internal Medicine 07/30/17 Additional Source Comments The information contained in this document represents components of the legal health record. It is not the complete legal health record.[facility]
--- OUTSIDE RECORDS SUMMARY | 2025-03-20 09:31 | XMS_ITS | Encounter Summary ---
Author Organization [facility] [place] [address] Care Team Providers Care Spooling Supervisor Name Role Phone Kristen Rabago MD Primary Care Provider [phone] Reason for Visit * Reason Onset Date Comments Results 03/17/2025 Encounter Details Date Type Department Care Team (Late st Contact Info) Description 03/17/2025 Telephone Internal Medicine - [facility] [address] [place], [place] [phone] Kristen Rabago MD [address] [place], [place] Social History Tobacco Use Types Packs/Day Years [...] for your loved ones. For example, child day care provider or elderly care for an older adult? [...] on file documented as of this encounter Progress Notes * Nilda Morales MA - 03/17/2025 4:17 PM EST Spoke to dad jose, he is frustrated with the medical system, states neuro office does not answer their phones. He is advised the lab is critical and our office cannot adjust it and to contact [facility], father states he will * Nilda Morales MA - 03/17/2025 3:40 PM EST Left message for pt to call back on the mobile number-answers as his Dad Jose * BHAVNA Randolph - 03/17/2025 3:24 PM EST Please contact patient. He needs to discuss critical results with neurologist who is prescribing him the medication * Nilda Morales MA - 03/17/2025 2:59 PM EST Phenytonin critical at 28.00 * Gela Forte - 03/17/2025 2:56 PM EST Ami from [facility] Called to report critical lab Call transferred to [place] documented in this encounter Plan of Treatment Upcoming Encounters Date Type Department Care Team (Late st Contact Info) Description 03/27/2025 1:30 PM EST [facility] [address] [place] [address] Brandin De Los Santos PA [address] [place], [place] documented as of this encounter Visit Diagnoses Not on filedocumented in this encounter Care Teams Spooling Supervisor Relationship Specialty Start Date End Date Kristen Rabago MD [address] [place], [place] PCP - General Internal Medicine 01/01/25 documented as of this encounter
--- OUTSIDE RECORDS SUMMARY | 2025-03-20 09:31 | XMS_ITS | Encounter Summary ---
Author Organization [facility] Address [address] [place] [address] Phone Care Team Providers Care Seat Joiner Name Role Phone Marshall Brown MD Primary Care Provider [phone] Encounter Details Date Type Department Care Team (Late st Contact Info) Description 09/18/2017 Procedure Pass [facility] - MRI [address] [facility]th [place] [address] Social History Tobacco Use Types Packs/Day Years [...] on filedocumented in this encounter Care Teams Seat Joiner Relationship Specialty Start Date End Date Marshall Brwon MD [address] [place] [address] PCP - General Internal Medicine 07/30/17 documented as of this encounter Additional Source Comments The information contained in this document represents components of the legal health record. It is not the complete legal health record.[facility]
--- OUTSIDE RECORDS SUMMARY | 2025-03-20 09:31 | XMS_ITS | Encounter Summary ---
Author Organization [facility] Address [address] [place] [address] Phone Care Team Providers Care Special Services Director Name Role Phone Marshall Brown MD Primary Care Provider [phone] Encounter Details Date Type Department Care Team (Late st Contact Info) Description 12/26/2017 Ancillary Orders [facility] Imaging - RF/IR [address] [facility]nd [place] [address] Yessy Freire MD [address] [place] [address] [address] [place] [address] [email or web address] Renal mass Social History Tobacco Use Types [...] decubitus position on the CT table and communication signals intelligence images were obtained. The right renal mass [...] ureter documented in this encounter Care Teams Special Services Director Relationship Specialty Start Date End Date Marshall Brown MD [address] [place] [address] PCP - General Internal Medicine 07/30/17 documented as of this encounter Additional Source Comments The information contained in this document represents components of the legal health record. It is not the complete legal health record.[facility]
[2025-03-21 22:29] LABS: Phenytoin, Free/Unbound 2.1 mg/L (1.0-2.0)
== END 2025-03-20 09:29 | disposition home or self-care (01) ==
LOC: HO.LAB 09:28
PROVIDERS: Visit Provider Nurse Practitioner Family
DX: G40.909 Epilepsy, unspecified, not intractable, without status epilepticus (principal)
CPT/HCPCS: 36415; 80185; 80186